=== PATIENT | male | born 1980 | race Caucasian/White ===

== ENCOUNTER 2018-02-19 20:31 | Emergency (ER) | payer OTHER ==
[2018-02-19] MEDS ORDERED: MORPHINE SULFATE 4 MG INJ IV ONE (21:08)
[2018-02-19] MEDS ORDERED: Pepcid 20 MG VIAL IV ONE ×2 (21:08→21:18)
[2018-02-19] MEDS ORDERED: Zofran 4 MG/2 ML VIAL IV ONE (21:08)
[2018-02-19] MEDS ORDERED: BENADRYL 50 MG/ML IV ONE (21:08)
[2018-02-19] MEDS ORDERED: Sodium Chloride 0.9% 1000 ML 1,000 ML IV STA ×2 (21:08→21:41)
[2018-02-19] MEDS ORDERED: Reglan 10 MG/2 ML IV ONE (21:08)
[2018-02-19] MEDS ORDERED: MORPHINE SULFATE 4 MG INJ ONE (21:18)
[2018-02-19] MEDS ORDERED: Reglan 10 MG/2 ML ONE (21:18)
[2018-02-19] MEDS ORDERED: BENADRYL 50 MG/ML ONE (21:18)
[2018-02-19] MEDS ORDERED: Sodium Chloride 0.9% 1000 ML 1,000 ML ONE ×2 (21:18→22:37)
[2018-02-19] MEDS ORDERED: Zofran 4 MG/2 ML VIAL ONE (21:18)
[2018-02-19 21:19] VITALS: BP 177/108; PULSE 78; O2SAT 100
[2018-02-19 21:30] LABS: Lactic Acid 2.9 (0.4-2.0)
--- NOTE | 2018-02-19 21:32 | ERPHSYRPT ---
- History of Present Illness Time Seen by Provider: 02/19/18 21:28 Historian: patient, family Exam Limitations: no limitations Patient Subjective Stated Complaint: Patient woke up in the middle of the night throwing up and has continued to do so since approximately every 1/2 hour Triage Nursing Assessment: Pt A&O x3, vomiting, hypoactive bowel sounds heard in all 4 quadrants, last intake pm 02/18/2018, skin cool and clammy, pulses normal, bp 177/108, abdomen tender with palpation, rates pain 8/10 in abdomen, Temp 99.4 axillary Physician History: 37-year-old male came to the emergency room with complaining of severe epigastric abdominal pain, burning in nature, associated with nausea and vomiting. Patient pain started around 1:00 in the morning today and got worse in last 2 hours. Patient took some Zantac but without any help. Patient had same type of symptoms approximately 6 months ago and at that time he was diagnosed with viral gastroenteritis. Patient does say that he had a bowel movement today which was regular. Patient denies any fever, chills. Timing/Duration: today Activities at Onset: none Quality: burning Abdominal Pain Onset Location: epigastric Pain Radiation: no radiation Severity of Pain-Max: moderate Severity of Pain-Current: moderate Modifying Factors: Improves With: nothing Associated Symptoms: nausea, vomiting Previous symptoms: same symptoms as today Allergies/Adverse Reactions: No Known Drug Allergies Allergy (Verified 02/19/18 21:26) - Review of Systems Constitutional: No Fever, No Chills Eyes: No Symptoms Ears, Nose, & Throat: No Symptoms Respiratory: No Cough, No Dyspnea Cardiac: No Chest Pain, No Edema, No Syncope Abdominal/Gastrointestinal: Abdominal Pain, Nausea, Vomiting, No Diarrhea Genitourinary Symptoms: No Dysuria Musculoskeletal: No Back Pain, No Neck Pain Skin: No Rash Neurological: No Dizziness, No Focal Weakness, No Sensory Changes Psychological: No Symptoms Endocrine: No Symptoms All Other Systems: Reviewed and Negative - Past Medical History Pertinent Past Medical History: No - Past Surgical History Past Surgical History: Yes Gastrointestinal: Appendectomy - Social History Smoking Status: Former smoker Exposure to second hand smoke: No Drug Use: none Patient Lives Alone: No - Nursing Vital Signs Nursing Vital Signs: Initial Vital Signs Temperature 99.4 F 02/19/18 21:05 Pulse Rate 78 02/19/18 21:05 Blood Pressure 177/108 02/19/18 21:05 O2 Sat by Pulse Oximetry 100 02/19/18 21:05 Pain Scale Pain Intensity 8 - Physical Exam General Appearance: no apparent distress, alert Eye Exam: PERRL/EOMI, eyes nml inspection Ears, Nose, Throat Exam: normal ENT inspection, pharynx normal, moist mucous membranes Neck Exam: normal inspection, non-tender, supple, full range of motion Respiratory Exam: normal breath sounds, lungs clear, No respiratory distress Cardiovascular Exam: regular rate/rhythm, normal heart sounds Gastrointestinal/Abdomen Exam: soft, tenderness (epigastric area), No mass Back Exam: normal inspection, normal range of motion, No CVA tenderness, No vertebral tenderness Extremity Exam: normal inspection, normal range of motion, pelvis stable Neurologic Exam: alert, oriented x 3, cooperative, normal mood/affect, nml cerebellar function, sensation nml, No motor deficits Skin Exam: normal color, warm, dry SpO2: 100 Oxygen Delivery: Room Air - Course Nursing assessment & vital signs reviewed: Yes Ordered Tests: Active Orders 24 hr Category Date Time Status AMYLASE Stat Lab 02/19/18 21:08 Completed CBC W DIFF Stat Lab 02/19/18 21:08 Completed CMP Stat Lab 02/19/18 21:08 Completed LIPASE Stat Lab 02/19/18 21:08 Completed Lactic Acid Stat Lab 02/19/18 21:25 Results UA W/RFX UR CULTURE Stat Lab 02/19/18 21:08 Ordered Urine Triage Profile Stat Lab 02/19/18 21:08 Completed Medication Summary Generic Name Dose Route Start Last Admin Trade Name Freq PRN Reason Stop Dose Admin Sodium Chloride 1,000 mls @ 999 mls/hr 02/19/18 21:41 Sodium Chloride 0.9% 1000 Ml IV 02/19/18 22:41 .Q1H1M STA Ceftriaxone Sodium/Dextrose 1 g in 50 mls @ 100 mls/hr 02/19/18 22:27 Rocephin 1 Gm-D5w 50 Ml Bag IV 02/19/18 22:56 STAT STA Discontinued Medications Generic Name Dose Route Start Last Admin Trade Name Freq PRN Reason Stop Dose Admin Diphenhydramine HCl 25 mg 02/19/18 21:08 02/19/18 21:22 Benadryl 50 Mg/Ml IV 02/19/18 21:09 25 mg STAT ONE Administration Diphenhydramine HCl Confirm 02/19/18 21:18 Benadryl 50 Mg/Ml Administered 02/19/18 21:19 Dose 50 mg .ROUTE .STK-MED ONE Famotidine 20 mg 02/19/18 21:08 02/19/18 21:21 Pepcid 20 Mg Vial IV 02/19/18 21:09 20 mg STAT ONE Administration Famotidine Confirm 02/19/18 21:18 Pepcid 20 Mg Vial Administered 02/19/18 21:19 Dose 20 mg IV .STK-MED ONE Sodium Chloride 1,000 mls @ 999 mls/hr 02/19/18 21:08 02/19/18 21:20 Sodium Chloride 0.9% 1000 Ml IV 02/19/18 22:08 999 mls/hr .Q1H1M STA Administration Sodium Chloride Confirm 02/19/18 21:18 Sodium Chloride 0.9% 1000 Ml Administered 02/19/18 21:19 Dose 1,000 mls @ ud .ROUTE .STK-MED ONE Metoclopramide HCl 10 mg 02/19/18 21:08 02/19/18 21:22 Reglan 10 Mg/2 Ml IV 02/19/18 21:09 10 mg STAT ONE Administration Metoclopramide HCl Confirm 02/19/18 21:18 Reglan 10 Mg/2 Ml Administered 02/19/18 21:19 Dose 10 mg .ROUTE .STK-MED ONE Morphine Sulfate 4 mg 02/19/18 21:08 02/19/18 21:22 Morphine Sulfate 4 Mg Inj IV 02/19/18 21:09 4 mg STAT ONE Administration Morphine Sulfate Confirm 02/19/18 21:18 Morphine Sulfate 4 Mg Inj Administered 02/19/18 21:19 Dose 4 mg .ROUTE .STK-MED ONE Ondansetron HCl 4 mg 02/19/18 21:08 02/19/18 21:21 Zofran 4 Mg/2 Ml Vial IV 02/19/18 21:09 4 mg STAT ONE Administration Ondansetron HCl Confirm 02/19/18 21:18 Zofran 4 Mg/2 Ml Vial Administered 02/19/18 21:19 Dose 4 mg .ROUTE .STK-MED ONE Lab/Rad Data: Laboratory Result Diagrams 02/19/18 21:08 02/19/18 21:08 Laboratory Results 02/19/18 02/19/18 02/19/18 Range/Units 21:25 21:08 21:08 WBC (4.0-10.5) K/mm3 RBC (4.1-5.6) M/mm3 Hgb (12.5-18.0) gm/dl Hct (42-50) % MCV (78-100) fl MCH (26-32) pg MCHC (32-36) g/dl RDW (11.5-14.0) % Plt Count (150-450) K/mm3 MPV (6-9.5) fl Gran % (36.0-66.0) % Eos # (Auto) (0-0.5) Absolute Lymphs (auto) (1.0-4.6) Absolute Monos (auto) (0.0-1.3) Lymphocytes % (24.0-44.0) % Monocytes % (0.0-12.0) % Eosinophils % (0.00-5.0) % Basophils % (0.0-0.4) % Absolute Granulocytes (1.4-6.9) Basophils # (0-0.4) Sodium 142 (137-145) mmol/L Potassium 4.0 (3.5-5.1) mmol/L Chloride 103 (98-107) mmol/L Carbon Dioxide 20 L (22-30) mmol/L Anion Gap 23.3 H (5-15) MEQ/L BUN 16 (9-20) mg/dL Creatinine 0.62 L (0.66-1.25) mg/dL Estimated GFR > 60.0 ML/MIN Glucose 126 H (74-106) mg/dL Lactic Acid 2.9 H (0.4-2.0) Calcium 10.7 H (8.4-10.2) mg/dL Total Bilirubin 0.90 (0.2-1.3) mg/dL AST 43 (17-59) U/L ALT 52 H (0-50) U/L Alkaline Phosphatase 115 (38-126) U/L Serum Total Protein 10.3 H (6.3-8.2) g/dL Albumin 5.3 H (3.5-5.0) g/dL Amylase 71 (30-110) U/L Lipase 69 (23-300) U/L Urine Opiates Level POSITIVE (NEGATIVE) Ur Methadone NEGATIVE (NEGATIVE) Urine Barbiturates NEGATIVE (NEGATIVE) Ur Phencyclidine (PCP) NEGATIVE (NEGATIVE) Urine Amphetamine NEGATIVE (NEGATIVE) U Benzodiazepine Level NEGATIVE (NEGATIVE) Urine Cocaine NEGATIVE (NEGATIVE) Urine Marijuana (THC) POSITIVE (NEGATIVE) 02/19/18 Range/Units 21:08 WBC 17.6 H (4.0-10.5) K/mm3 RBC 5.82 H (4.1-5.6) M/mm3 Hgb 17.2 (12.5-18.0) gm/dl Hct 49.0 (42-50) % MCV 84.2 (78-100) fl MCH 29.5 (26-32) pg MCHC 35.1 (32-36) g/dl RDW 12.7 (11.5-14.0) % Plt Count 367 (150-450) K/mm3 MPV 11.8 H (6-9.5) fl Gran % 87.1 H (36.0-66.0) % Eos # (Auto) 0.01 (0-0.5) Absolute Lymphs (auto) 1.77 (1.0-4.6) Absolute Monos (auto) 0.46 (0.0-1.3) Lymphocytes % 10.1 L (24.0-44.0) % Monocytes % 2.6 (0.0-12.0) % Eosinophils % 0.1 (0.00-5.0) % Basophils % 0.1 (0.0-0.4) % Absolute Granulocytes 15.33 H (1.4-6.9) Basophils # 0.02 (0-0.4) Sodium (137-145) mmol/L Potassium (3.5-5.1) mmol/L Chloride (98-107) mmol/L Carbon Dioxide (22-30) mmol/L Anion Gap (5-15) MEQ/L BUN (9-20) mg/dL Creatinine (0.66-1.25) mg/dL Estimated GFR ML/MIN Glucose (74-106) mg/dL Lactic Acid (0.4-2.0) Calcium (8.4-10.2) mg/dL Total Bilirubin (0.2-1.3) mg/dL AST (17-59) U/L ALT (0-50) U/L Alkaline Phosphatase (38-126) U/L Serum Total Protein (6.3-8.2) g/dL Albumin (3.5-5.0) g/dL Amylase (30-110) U/L Lipase (23-300) U/L Urine Opiates Level (NEGATIVE) Ur Methadone (NEGATIVE) Urine Barbiturates (NEGATIVE) Ur Phencyclidine (PCP) (NEGATIVE) Urine Amphetamine (NEGATIVE) U Benzodiazepine Level (NEGATIVE) Urine Cocaine (NEGATIVE) Urine Marijuana (THC) (NEGATIVE) - Progress Progress: improved, re-examined Progress Note: 02/19/18 22:28 Patient is feeling much better. Abdominal pain is almost resolved. No nausea or vomiting or no burning sensation in epigastric area able to tolerate fluid. Counseled pt/family regarding: lab results, diagnosis, need for follow-up - Departure Time of Disposition: 22:29 Departure Disposition: Home Clinical Impression: Gastritis and duodenitis Condition: Stable Critical Care Time: Yes Critical Care Time(excluding separately billable procedures): 30-74 minutes Referrals: DOMINIQUE VANCE [ACTIVE STAFF] - Instructions: Acute Abdomen (Belly Pain), Adult (DC) Additional Instructions: ABDOMINAL PAIN 1. There are several different causes for abdominal pain, some of which may not be able to be identified on initial examination. 2. The important thing to remember is that bodily functions can change in a short period of time. If you notice any of the following symptoms, return to the emergency department or consult your doctor immediately: A. Worsening pain or no improvement in the next 12 hours. B. Increasing, severe abdominal pain C. Blood in stool D. Black stools E. Persistent vomiting F. Fever or chills or other symptoms ABBIEYOMICORIN CHRISTIANSON was seen on 02/19/18 n the Emergency Room. At that time you were treated for an emergent condition, during your visit Laboratory, Radiology and/or other procedures may have been ordered. It is very important that you follow-up with your Primary Care Physician within the next 24-48 hours to review your Emergency Room visit and the final results of testing that was ordered. Some test results such as Urine Cultures, Blood Cultures, and other cultures if ordered will not be finalized for 24-48 hours. If you do not have a Primary Care Provider please call the medical records department at [phone] to obtain a copy of your results or you may sign into our patient portal to obtain these results by visiting us @ [email or web address] and completing the following steps: 1. Click on the Patient Portal link 2. Click the Patient Self Enrollment Link to complete the enrollment form and entering your 3. Once the enrollment form is completed you will receive an email with a temporary ID and password at the email address you provided. 4. Next choose a user name and password. Your user name must be at least 4 characters long and your password must be at least 4 characters long. 5. Choose a security question from the list and provide your answer to the question. If you already have signed into the Health Portal you may access your Health Care Information 04/05 by the following steps: 1. Login to our website @ [email or web address] 2. Enter your original user name and password. FAQS The [facility] Health Portal is an online tool that contains your Lab Results, Radiology Reports, Visit History, Discharge Instructions and Health Summary Lab and Radiology Results will not be available for 72 hours on the portal. The Portal is a secure site, passwords are encryted and URLs are re-written so they cannot be copied and pasted. You and authorized family members are the only ones who can access your Portal. Also there is a timeout feature that protects your information if you leave the Portal page open. If you have technical difficulty please use the Contact Us link on the page this will allow you to submit any questions you have regarding the Portal or you may contact the Medical Record Department at [phone]. Prescriptions: Cephalexin Mh 500 mg [Keflex 500 mg] 500 mg PO Q6H #40 capsule PANTOPRAZOLE 40 mg Tablet [Protonix 40MG Tablet] 40 mg PO DAILY #30 tab
[2018-02-19 21:48] LABS: ALBUMIN 5.3 g/dL (3.5-5.0); ALKALINE PHOSPHATASE 115 U/L (38-126); AMYLASE 71 U/L (30-110); ANION GAP 23.3 MEQ/L (5-15); BLOOD UREA NITROGEN 16 mg/dL (9-20); CHLORIDE 103 mmol/L (98-107); Calcium 10.7 mg/dL (8.4-10.2); Carbon Dioxide 20 mmol/L (22-30); Creatinine 1 0.62 mg/dL (0.66-1.25); Glucose 126 mg/dL (74-106); LIPASE 69 U/L (23-300); SGOT/AST 43 U/L (17-59); SODIUM 142 mmol/L (137-145); Total Protein 10.3 g/dL (6.3-8.2)
[2018-02-19 21:53] LABS: BASOPHIL % 0.1 % (0.0-0.4); Basophil (Absolute #) 0.02 (0-0.4); Eosinophil % 0.1 % (0.00-5.0); Eosinophil (Absolute #) 0.01 (0-0.5); Granulocyte Absolute (ANC) 15.33 (1.4-6.9); Granulocytes % 87.1 % (36.0-66.0); Hemoglobin 17.2 gm/dl (12.5-18.0); Lymphocyte (Absolute #) 1.77 (1.0-4.6); Lymphocytes % 10.1 % (24.0-44.0); Mean Cell Volume 84.2 fl (78-100); Mean Corpuscular Hgb Concent. 35.1 g/dl (32-36); Mean Platelet Volume 11.8 fl (6-9.5); Monocyte (Absolute #) 0.46 (0.0-1.3); Monocytes % 2.6 % (0.0-12.0); Platelet Count 367 K/mm3 (150-450); Red Blood Count 5.82 M/mm3 (4.1-5.6); Red Cell Distribution Width 12.7 % (11.5-14.0)
[2018-02-19 21:56] LABS: SGPT/ALT 52 U/L (0-50)
[2018-02-19 22:07] LABS: Mean Corpuscular Hemoglobin 29.5 pg (26-32)
[2018-02-19 22:10] LABS: Amphetamine,Urine NEGATIVE (NEGATIVE); Barbiturate,Urine NEGATIVE (NEGATIVE); Benzodiazepine,Urine NEGATIVE (NEGATIVE); Cocaine,Urine NEGATIVE (NEGATIVE); Methadone,Urine NEGATIVE (NEGATIVE); Opiate,Urine POSITIVE (NEGATIVE); PCP,Urine NEGATIVE (NEGATIVE)
[2018-02-19 22:16] LABS: THC,Urine POSITIVE (NEGATIVE)
[2018-02-19 22:17] LABS: White Blood Count 17.6 K/mm3 (4.0-10.5)
[2018-02-19] MEDS ORDERED: ROCEPHIN 1 Gm-D5w 50 ml Bag** 1 G/50 ML IVPB IV STA (22:27)
[2018-02-19] MEDS ORDERED: ROCEPHIN 1 Gm-D5w 50 ml Bag** 1 G/50 ML IVPB IV ONE (22:37)
[2018-02-19 22:44] LABS: Appearance CLEAR (CLEAR); Leukocyte Esterase NEGATIVE (NEGATIVE); Nitrite NEGATIVE (NEGATIVE)
[2018-02-19 22:45] LABS: Bilirubin NEGATIVE (NEGATIVE); Blood TRACE NON-HEM Ery/ul (0-5); Glucose NEGATIVE (NEGATIVE); Ketones MODERATE (NEGATIVE); Urobilinogen NORMAL mg/dL (0-1)
[2018-02-19 22:46] LABS: Protein,Urine Dip TRACE (Negative)
[2018-02-19 23:27] LABS: Slide Review 1 YES
== END 2018-02-19 23:25 | disposition home or self-care (01) ==
LOC: ED 20:31
DX: K29.80 Duodenitis without bleeding (principal); K29.70 Gastritis, unspecified, without bleeding; R11.2 Nausea with vomiting, unspecified
CPT/HCPCS: 36000; 36415; 80053; 80307; 81000; 82150; 83605; 83690; 85025; 96360; 96361; 96365; 96374; 96375; 99284; J0696; J1200; J2270; J2405

== ENCOUNTER 2018-02-22 19:25 | Emergency (ER) | payer OTHER ==
[2018-02-22] MEDS ORDERED: Zofran 4 MG/2 ML VIAL IV ONE (20:13)
[2018-02-22] MEDS ORDERED: MORPHINE SULFATE 4 MG INJ IV ONE (20:13)
[2018-02-22] MEDS ORDERED: Sodium Chloride 0.9% 1000 ML 1,000 ML IV STA ×2 (20:13→22:03)
[2018-02-22] MEDS ORDERED: MORPHINE SULFATE 4 MG INJ ONE (20:16)
[2018-02-22] MEDS ORDERED: Sodium Chloride 0.9% 1000 ML 1,000 ML ONE ×2 (20:16→22:14)
[2018-02-22] MEDS ORDERED: Zofran 4 MG/2 ML VIAL ONE (20:16)
--- NOTE | 2018-02-22 20:17 | ERPHSYRPT ---
- History of Present Illness Time Seen by Provider: 02/22/18 20:10 Historian: patient Exam Limitations: no limitations Patient Subjective Stated Complaint: vomiting, chills, pain in medial area between right and left upper quadrants of abdomen Triage Nursing Assessment: Pt A&O x3, vomiting, chills, pain in medial area between right and left upper quadrants of abdomen and with palpation, clammy, presented to ER on 02/19/2018 with same symptoms, bowel sounds heard in all 4 quadrants, Physician History: Was him this is a 37-year-old white male who was seen here 2 days ago secondary to abdominal pain . He arrives with complaints of pain in the epigastric region since 11:00 today with nausea and vomiting. Past medical history patient denies past surgical history includes appendectomy Social history includes marijuana use Quality: aching, burning Abdominal Pain Onset Location: epigastric Severity of Pain-Max: moderate Severity of Pain-Current: moderate Modifying Factors: Improves With: nothing Associated Symptoms: diaphoresis, nausea, vomiting, No back, No chest pain, No diarrhea, No fever/chills, No fatigue, No headache, No heartburn, No loss of appetite, No neck pain, No rash, No shortness of breath, No syncope, No weakness Previous symptoms: same symptoms as today (seen here 2 days ago for the same) Allergies/Adverse Reactions: No Known Drug Allergies Allergy (Verified 02/22/18 19:45) Home Medications: Omeprazole 20 MG [Prilosec 20 mg] 20 mg PO BID 02/22/18 [History] - Review of Systems Constitutional: No Fever, No Chills Eyes: No Symptoms Ears, Nose, & Throat: No Symptoms Respiratory: No Cough, No Dyspnea Cardiac: No Chest Pain, No Edema, No Syncope Abdominal/Gastrointestinal: Abdominal Pain, Vomiting, No Diarrhea, No Constipation, No Hematemesis, No Hematochezia, No Melena, No Dysphagia, No Appetite Changes Genitourinary Symptoms: No Dysuria Musculoskeletal: No Back Pain, No Neck Pain Skin: No Rash Neurological: No Dizziness, No Focal Weakness, No Sensory Changes Psychological: No Symptoms Endocrine: No Symptoms All Other Systems: Reviewed and Negative - Past Medical History Pertinent Past Medical History: No - Past Surgical History Past Surgical History: Yes Gastrointestinal: Appendectomy - Social History Smoking Status: Former smoker Exposure to second hand smoke: No Drug Use: marijuana Patient Lives Alone: No - Nursing Vital Signs Nursing Vital Signs: Initial Vital Signs Temperature 98.0 F 02/22/18 19:30 Pulse Rate 65 02/22/18 19:30 Blood Pressure 163/109 02/22/18 19:30 O2 Sat by Pulse Oximetry 100 02/22/18 19:30 Pain Scale Pain Intensity 6 - Physical Exam General Appearance: moderate distress Eye Exam: PERRL/EOMI, eyes nml inspection Ears, Nose, Throat Exam: normal ENT inspection, pharynx normal, moist mucous membranes Neck Exam: normal inspection, non-tender, supple, full range of motion Respiratory Exam: normal breath sounds, lungs clear, No respiratory distress Cardiovascular Exam: regular rate/rhythm, normal heart sounds Gastrointestinal/Abdomen Exam: soft, normal bowel sounds, tenderness ( epigastric tenderness), No distention, No mass, No guarding, No ecchymosis, No pulsatile mass, No rebound, No hernia, No hepatomegaly, No organomegaly, No splenomegaly, No bruit Back Exam: normal inspection, normal range of motion, No CVA tenderness, No vertebral tenderness Extremity Exam: normal inspection, normal range of motion, pelvis stable Neurologic Exam: alert, oriented x 3, cooperative, normal mood/affect, nml cerebellar function, sensation nml, No motor deficits Skin Exam: normal color, warm, dry SpO2 Interpretation: normal SpO2: 100 Oxygen Delivery: Room Air - Course Nursing assessment & vital signs reviewed: Yes - CT Exams Abdomen/Pelvis CT Interpretation: Tele-radiologist Report (CT of abdomen and pelvis: No acute findings) Ordered Tests: Active Orders 24 hr Category Date Time Status IV Insertion STAT Care 02/22/18 20:13 Active ABDOMEN AND PELVIS W CONTRAST [CT] Stat Exams 02/22/18 20:32 Taken AMYLASE Stat Lab 02/22/18 20:16 Completed CBC W DIFF Stat Lab 02/22/18 20:16 Completed CMP Stat Lab 02/22/18 20:16 Completed LIPASE Stat Lab 02/22/18 20:16 Completed UA W/RFX UR CULTURE Stat Lab 02/22/18 21:45 Completed Medication Summary Discontinued Medications Generic Name Dose Route Start Last Admin Trade Name Freq PRN Reason Stop Dose Admin Hydrocodone Bitart/Acetaminophen 2 tab 02/22/18 23:12 Warrior 5/325 Mg PO 02/22/18 23:13 SENT HOME W/ PATIENT ONE Sodium Chloride 1,000 mls @ 999 mls/hr 02/22/18 20:13 02/22/18 21:56 Sodium Chloride 0.9% 1000 Ml IV 02/22/18 21:13 Infused .Q1H1M STA Infusion Sodium Chloride Confirm 02/22/18 20:16 Sodium Chloride 0.9% 1000 Ml Administered 02/22/18 20:17 Dose 1,000 mls @ ud .ROUTE .STK-MED ONE Sodium Chloride 1,000 mls @ 999 mls/hr 02/22/18 22:03 02/22/18 23:15 Sodium Chloride 0.9% 1000 Ml IV 02/22/18 23:03 Infused .Q1H1M STA Infusion Sodium Chloride Confirm 02/22/18 22:14 Sodium Chloride 0.9% 1000 Ml Administered 02/22/18 22:15 Dose 1,000 mls @ ud .ROUTE .STK-MED ONE Morphine Sulfate 4 mg 02/22/18 20:13 02/22/18 20:18 Morphine Sulfate 4 Mg Inj IV 02/22/18 20:14 4 mg STAT ONE Administration Morphine Sulfate Confirm 02/22/18 20:16 Morphine Sulfate 4 Mg Inj Administered 02/22/18 20:17 Dose 4 mg .ROUTE .STK-MED ONE Ondansetron HCl 4 mg 02/22/18 20:13 02/22/18 20:18 Zofran 4 Mg/2 Ml Vial IV 02/22/18 20:14 4 mg STAT ONE Administration Ondansetron HCl Confirm 02/22/18 20:16 Zofran 4 Mg/2 Ml Vial Administered 02/22/18 20:17 Dose 4 mg .ROUTE .STK-MED ONE Promethazine HCl 25 mg 02/22/18 23:15 Phenergan 25 Mg PO 02/22/18 23:16 STAT ONE Lab/Rad Data: Laboratory Result Diagrams 02/22/18 20:16 02/22/18 20:16 Laboratory Results 02/22/18 02/22/18 02/22/18 Range/Units 21:45 20:16 20:16 WBC 14.2 H (4.0-10.5) K/mm3 RBC 5.32 (4.1-5.6) M/mm3 Hgb 15.9 (12.5-18.0) gm/dl Hct 45.2 (42-50) % MCV 85.0 (78-100) fl MCH 29.9 (26-32) pg MCHC 35.2 (32-36) g/dl RDW 13.0 (11.5-14.0) % Plt Count 312 (150-450) K/mm3 MPV 11.5 H (6-9.5) fl Gran % 76.0 H (36.0-66.0) % Eos # (Auto) 0.09 (0-0.5) Absolute Lymphs (auto) 2.59 (1.0-4.6) Absolute Monos (auto) 0.71 (0.0-1.3) Lymphocytes % 18.3 L (24.0-44.0) % Monocytes % 5.0 (0.0-12.0) % Eosinophils % 0.6 (0.00-5.0) % Basophils % 0.1 (0.0-0.4) % Absolute Granulocytes 10.78 H (1.4-6.9) Basophils # 0.02 (0-0.4) Sodium 144 (137-145) mmol/L Potassium 3.8 (3.5-5.1) mmol/L Chloride 106 (98-107) mmol/L Carbon Dioxide 24 (22-30) mmol/L Anion Gap 18.1 H (5-15) MEQ/L BUN 15 (9-20) mg/dL Creatinine 0.65 L (0.66-1.25) mg/dL Estimated GFR > 60.0 ML/MIN Glucose 99 (74-106) mg/dL Calcium 10.3 H (8.4-10.2) mg/dL Total Bilirubin 0.70 (0.2-1.3) mg/dL AST 30 (17-59) U/L ALT 33 (0-50) U/L Alkaline Phosphatase 97 (38-126) U/L Serum Total Protein 8.9 H (6.3-8.2) g/dL Albumin 4.8 (3.5-5.0) g/dL Amylase 77 (30-110) U/L Lipase 99 (23-300) U/L Ur Collection Type VOID Urine Color YELLOW (YELLOW) Urine Appearance CLEAR (CLEAR) Urine pH 8.0 (5-6) Ur Specific Melber 1.015 (1.005-1.025) Urine Protein NEGATIVE (Negative) Urine Ketones SMALL (NEGATIVE) Urine Blood NEGATIVE (0-5) Leandro/ul Urine Nitrite NEGATIVE (NEGATIVE) Urine Bilirubin NEGATIVE (NEGATIVE) Urine Urobilinogen NORMAL (0-1) mg/dL Ur Leukocyte Esterase NEGATIVE (NEGATIVE) Urine Culture Reflexed NO (NO) Urine Glucose NEGATIVE (NEGATIVE) mg/dL Specimen Received 02/22/18 2745 - Progress Progress: improved Progress Note: 02/22/18 23:06 Patient is feeling better after 2 L of normal saline Zofran and morphine [address] of the abdomen no acute findings patient's labs show a white count of 14.2 hemoglobin 15.4 hematocrit 45.2 amylase and lipase within normal limits urinalysis unremarkable. Will plan to discharge patient with a prescription for Phenergan 25 mg orally every 4-6 hours as needed for nausea and vomiting Warrior No. 6 tablets one orally every 4-6 hours as needed for pain. Patient has already been given a prescription by Dr. Ferro for Keflex for duodenitis. I've offered patient a work slip for tomorrow he states he really doesn't need one. Will discharge patient. - Departure Time of Disposition: 23:08 Departure Disposition: Home Clinical Impression: Epigastric abdominal pain Nausea & vomiting Qualifiers: Vomiting type: unspecified Vomiting Intractability: non-intractable Qualified Code(s): R11.2 - Nausea with vomiting, unspecified Condition: Fair Critical Care Time: No Referrals: DOCTOR,NO FAMILY [Primary Care Provider] - Additional Instructions: Return home. Plenty of fluids, clear fluids only 24-48 hours if nausea vomiting. Phenergan and Warrior as prescribed. Follow-up with your family doctor. Return for acute distress or for severe symptoms. Prescriptions: Hydrocodone Bit/Acetaminophen [Warrior 5-325 Tablet] 1 tab PO Q4-6HPRN PRN #6 tablet MDD 6 tablets PRN Reason: nausea and vomiting Promethazine HCl 25 mg [Phenergan 25 mg] 25 mg PO Q4-6HPRN PRN #12 tablet PRN Reason: nausea and vomiting
[2018-02-22 20:20] LABS: BASOPHIL % 0.1 % (0.0-0.4); Basophil (Absolute #) 0.02 (0-0.4); Eosinophil % 0.6 % (0.00-5.0); Eosinophil (Absolute #) 0.09 (0-0.5); Granulocyte Absolute (ANC) 10.78 (1.4-6.9); Hematocrit 45.2 % (42-50); Hemoglobin 15.9 gm/dl (12.5-18.0); Lymphocyte (Absolute #) 2.59 (1.0-4.6); Lymphocytes % 18.3 % (24.0-44.0); Mean Corpuscular Hemoglobin 29.9 pg (26-32); Mean Corpuscular Hgb Concent. 35.2 g/dl (32-36); Mean Platelet Volume 11.5 fl (6-9.5); Monocyte (Absolute #) 0.71 (0.0-1.3); Platelet Count 312 K/mm3 (150-450); Red Blood Count 5.32 M/mm3 (4.1-5.6); White Blood Count 14.2 K/mm3 (4.0-10.5)
[2018-02-22 20:27] LABS: ALBUMIN 4.8 g/dL (3.5-5.0); ALKALINE PHOSPHATASE 97 U/L (38-126); AMYLASE 77 U/L (30-110); ANION GAP 18.1 MEQ/L (5-15); BLOOD UREA NITROGEN 15 mg/dL (9-20); CHLORIDE 106 mmol/L (98-107); Calcium 10.3 mg/dL (8.4-10.2); Carbon Dioxide 24 mmol/L (22-30); Creatinine 1 0.65 mg/dL (0.66-1.25); Glucose 99 mg/dL (74-106); LIPASE 99 U/L (23-300); Potassium 3.8 mmol/L (3.5-5.1); SGOT/AST 30 U/L (17-59); SGPT/ALT 33 U/L (0-50); SODIUM 144 mmol/L (137-145); Total Protein 8.9 g/dL (6.3-8.2)
[2018-02-22 21:51] LABS: Appearance CLEAR (CLEAR); Bilirubin NEGATIVE (NEGATIVE); Blood NEGATIVE Ery/ul (0-5); Glucose NEGATIVE (NEGATIVE); Ketones SMALL (NEGATIVE); Leukocyte Esterase NEGATIVE (NEGATIVE); Nitrite NEGATIVE (NEGATIVE); Protein,Urine Dip NEGATIVE (Negative); Specific Gravity 1.015 (1.005-1.025); Urobilinogen NORMAL mg/dL (0-1)
[2018-02-22] MEDS ORDERED: NORCO 5/325 MG PO ONE (23:12)
[2018-02-22 23:15] VITALS: BP 135/75; PULSE 83
[2018-02-22] MEDS ORDERED: PHENERGAN 25 MG PO ONE (23:15)
[2018-02-22 23:17] VITALS: O2SAT 100
[2018-02-22] MEDS ORDERED: PHENERGAN 25 MG ONE (23:18)
[2018-02-22] MEDS ORDERED: NORCO 5/325 MG ONE (23:18)
--- NOTE | 2018-02-23 08:54 | XRAY ---
Indication: Abdominal pain. Nausea and vomiting. Multiple contiguous axial images obtained through the abdomen and pelvis using 80 cc Isovue 370 contrast only. Comparison: None. Lung bases are clear. Heart is not enlarged. Noncontrasted stomach and bowel loops appear nonobstructed. Previous appendectomy. No free fluid/air. Remaining liver, gallbladder, pancreas, spleen, adrenal glands, kidneys, ureters, bladder, and aorta appear unremarkable. No pathologic retroperitoneal lymphadenopathy. Osseous structures intact with remote appearing L3 anterior wedging deformity and mild dextroscoliosis centered at L1-L2. No ventral or inguinal hernias. Impression: 1. Chronic incidental bony findings. 2. Remaining CT abdomen/pelvis with contrast exam is negative. Comment: Preliminary interpretation was made by [facility]. No critical discrepancy. CT DI 18.31
== END 2018-02-22 23:33 | disposition home or self-care (01) ==
LOC: ED 19:25
DX: R10.13 Epigastric pain (principal); R11.2 Nausea with vomiting, unspecified; R61 Generalized hyperhidrosis
CPT/HCPCS: 36000; 36415; 74177; 80053; 81002; 82150; 83690; 85025; 96360; 96361; 96374; 96375; 99284; J2270; J2405; A9270-GY

== ENCOUNTER 2018-04-20 17:10 | Emergency (ER) | payer OTHER ==
[2018-04-20] MEDS ORDERED: Sodium Chloride 0.9% 1000 ML 1,000 ML IV STA ×2 (17:52→17:54)
[2018-04-20] MEDS ORDERED: Phenergan 25 MG INJ IV ONE (17:52)
--- NOTE | 2018-04-20 17:57 | ERPHSYRPT ---
- History of Present Illness Time Seen by Provider: 04/20/18 17:53 Historian: patient Exam Limitations: no limitations Patient Subjective Stated Complaint: pt here for nausea and vomiting since last night with heartburn today. pt took omeperzole. no fever Triage Nursing Assessment: pt alert, resp easy, skin w/d/p, abd soft, no edema. moves all ext well Physician History: 37-year-old white male arrives with complaints of epigastric pain symptoms since last night nausea and vomiting. Patient has been seen recently for similar symptoms approximately 2 months ago had a normal CT of the abdomen at that time. Past medical history includes appendectomy, orthopedic surgery, ankle surgery, Social history includes marijuana use Timing/Duration: yesterday Activities at Onset: none Quality: cramping Abdominal Pain Onset Location: epigastric Pain Radiation: no radiation Associated Symptoms: heartburn, nausea, vomiting, No back, No chest pain, No diaphoresis, No diarrhea, No fever/chills, No fatigue, No headache, No loss of appetite, No neck pain, No rash, No shortness of breath, No syncope, No weakness Previous symptoms: same symptoms as today Allergies/Adverse Reactions: No Known Drug Allergies Allergy (Verified 04/20/18 17:28) Home Medications: Omeprazole Magnesium [Prilosec Otc] 20 mg DAILY 04/20/18 [History] Ranitidine HCl [Zantac] 150 mg DAILY 04/20/18 [History] Hx Influenza Vaccination/Date Given: No Hx Pneumococcal Vaccination/Date Given: No Immunizations Up to Date: Yes - Review of Systems Constitutional: No Fever, No Chills Eyes: No Symptoms Ears, Nose, & Throat: No Symptoms Respiratory: No Cough, No Dyspnea Cardiac: No Chest Pain, No Edema, No Syncope Abdominal/Gastrointestinal: Abdominal Pain (epigastric abdominal pain), Nausea, Vomiting, No Diarrhea, No Constipation, No Hematemesis, No Hematochezia, No Melena, No Dysphagia Genitourinary Symptoms: No Dysuria Musculoskeletal: No Back Pain, No Neck Pain Skin: No Rash Neurological: No Dizziness, No Focal Weakness, No Sensory Changes Psychological: No Symptoms Endocrine: No Symptoms All Other Systems: Reviewed and Negative - Past Medical History Pertinent Past Medical History: No - Past Surgical History Past Surgical History: Yes Gastrointestinal: Appendectomy Musculoskeletal: Orthopedic Surgery Other Surgical History: ankle surgery - Social History Smoking Status: Never smoker Exposure to second hand smoke: Yes Drug Use: marijuana Patient Lives Alone: No - Nursing Vital Signs Nursing Vital Signs: Initial Vital Signs Temperature 97.8 F 04/20/18 17:24 Pulse Rate 95 H 04/20/18 17:24 Respiratory Rate 16 04/20/18 17:24 Blood Pressure 144/80 04/20/18 17:24 O2 Sat by Pulse Oximetry 100 04/20/18 17:24 Pain Scale Pain Intensity 6 - Physical Exam General Appearance: mild distress Eye Exam: PERRL/EOMI, eyes nml inspection Ears, Nose, Throat Exam: normal ENT inspection, pharynx normal, moist mucous membranes Neck Exam: normal inspection, non-tender, supple, full range of motion Respiratory Exam: normal breath sounds, lungs clear, No respiratory distress Cardiovascular Exam: regular rate/rhythm, normal heart sounds Gastrointestinal/Abdomen Exam: soft, normal bowel sounds, tenderness ( epigastric tenderness), No distention, No mass, No guarding, No pulsatile mass Back Exam: normal inspection, normal range of motion, No CVA tenderness, No vertebral tenderness Extremity Exam: normal inspection, normal range of motion, pelvis stable Neurologic Exam: alert, oriented x 3, cooperative, stiff straw hat washer II-XII nml as tested, normal mood/affect, nml cerebellar function, sensation nml, No motor deficits Skin Exam: normal color, warm, dry SpO2 Interpretation: normal (100%) SpO2: 100 Oxygen Delivery: Room Air - Course Nursing assessment & vital signs reviewed: Yes EKG Interpreted by Me: RATE (85 bpm), Sinus Rhythm, NORMAL AXIS, Other (EKG: Normal sinus rhythm, 85 beats per minute, normal axis, no acute ST or T wave changes) Ordered Tests: Active Orders 24 hr Category Date Time Status EKG-ER Only STAT Care 04/20/18 17:52 Active IV Insertion STAT Care 04/20/18 17:52 Active AMYLASE Stat Lab 04/20/18 18:30 Completed CBC W DIFF Stat Lab 04/20/18 Completed CMP Stat Lab 04/20/18 18:30 Completed LIPASE Stat Lab 04/20/18 18:30 Completed TROPONIN Q3H Lab 04/20/18 Completed TROPONIN Q3H Lab 04/20/18 21:00 Ordered TROPONIN Q3H Lab 04/21/18 00:00 Ordered TROPONIN Q3H Lab 04/21/18 03:00 Ordered TROPONIN Q3H Lab 04/21/18 06:00 Ordered Medication Summary Discontinued Medications Generic Name Dose Route Start Last Admin Trade Name Elda PRN Reason Stop Dose Admin Sodium Chloride 1,000 mls @ 999 mls/hr 04/20/18 17:52 04/20/18 19:31 Sodium Chloride 0.9% 1000 Ml IV 04/20/18 18:52 Infused .Q1H1M STA Infusion Sodium Chloride 1,000 mls @ 999 mls/hr 04/20/18 17:54 04/20/18 19:31 Sodium Chloride 0.9% 1000 Ml IV 04/20/18 18:54 999 mls/hr .Q1H1M STA Administration Sodium Chloride Confirm 04/20/18 18:14 Sodium Chloride 0.9% 1000 Ml Administered 04/20/18 18:15 Dose 1,000 mls @ ud .ROUTE .STK-MED ONE Sodium Chloride Confirm 04/20/18 19:30 Sodium Chloride 0.9% 1000 Ml Administered 04/20/18 19:31 Dose 1,000 mls @ ud .ROUTE .STK-MED ONE Promethazine HCl 12.5 mg 04/20/18 17:52 04/20/18 18:18 Phenergan 25 Mg Inj IV 04/20/18 17:53 25 mg STAT ONE Administration Promethazine HCl Confirm 04/20/18 18:14 Phenergan 25 Mg Inj Administered 04/20/18 18:15 Dose 25 mg .ROUTE .STK-MED ONE Lab/Rad Data: Laboratory Result Diagrams 04/20/18 Unknown 04/20/18 18:30 Laboratory Results 04/20/18 04/20/18 04/20/18 Range/Units Unknown Unknown 18:30 WBC 18.2 H (4.0-10.5) K/mm3 RBC 5.46 (4.1-5.6) M/mm3 Hgb 16.1 (12.5-18.0) gm/dl Hct 44.8 (42-50) % MCV 82.1 (78-100) fl MCH 29.5 (26-32) pg MCHC 35.9 (32-36) g/dl RDW 13.3 (11.5-14.0) % Plt Count 414 (150-450) K/mm3 MPV 11.0 H (6-9.5) fl Gran % 77.1 H (36.0-66.0) % Eos # (Auto) 0.02 (0-0.5) Absolute Lymphs (auto) 2.93 (1.0-4.6) Absolute Monos (auto) 1.19 (0.0-1.3) Lymphocytes % 16.1 L (24.0-44.0) % Monocytes % 6.6 (0.0-12.0) % Eosinophils % 0.1 (0.00-5.0) % Basophils % 0.1 (0.0-0.4) % Absolute Granulocytes 13.99 H (1.4-6.9) Basophils # 0.02 (0-0.4) Sodium 140 (137-145) mmol/L Potassium 3.5 (3.5-5.1) mmol/L Chloride 102 (98-107) mmol/L Carbon Dioxide 21 L (22-30) mmol/L Anion Gap 19.9 H (5-15) MEQ/L BUN 19 (9-20) mg/dL Creatinine 0.73 (0.66-1.25) mg/dL Estimated GFR > 60.0 ML/MIN Glucose 119 H (74-106) mg/dL Calcium 10.3 H (8.4-10.2) mg/dL Total Bilirubin 0.80 (0.2-1.3) mg/dL AST 33 (17-59) U/L ALT 59 H (0-50) U/L Alkaline Phosphatase 117 (38-126) U/L Troponin I < 0.012 (0.000-0.034) ng/mL Serum Total Protein 9.7 H (6.3-8.2) g/dL Albumin 5.3 H (3.5-5.0) g/dL Amylase 53 (30-110) U/L Lipase 77 (23-300) U/L - Progress Progress: improved Progress Note: 04/20/18 19:34 Patient is feeling much better after 1 L of normal saline. Patient white count is elevated 18.2 hemoglobin 16.1 hematocrit 44.8. Chemistry is essentially normal. Troponin is less than 0.012 EKG normal sinus rhythm 85 bpm normal axis no acute ST or T wave changes are noted. Will plan to give the patient a second liter of fluids. Plan to go home with Zofran. - Departure Time of Disposition: 19:35 Departure Disposition: Home Clinical Impression: Dehydration Vomiting Qualifiers: Vomiting type: unspecified Vomiting Intractability: unspecified Nausea presence : with nausea Qualified Code(s): R11.2 - Nausea with vomiting, unspecified Condition: Fair Critical Care Time: No Referrals: DOCTOR,NO FAMILY [Primary Care Provider] - Additional Instructions: Return home. Plenty of fluids. Clear fluids only 24-48 hours if nausea vomiting. Zofran 4 mg orally every 4-6 hours as needed for nausea and vomiting. Follow-up with your family doctor if symptoms are worse no better in 24 hours or persist longer than 48 hours. Return for acute distress or for severe symptoms.
[2018-04-20 18:04] LABS: BASOPHIL % 0.1 % (0.0-0.4); Basophil (Absolute #) 0.02 (0-0.4); Eosinophil % 0.1 % (0.00-5.0); Eosinophil (Absolute #) 0.02 (0-0.5); Granulocyte Absolute (ANC) 13.99 (1.4-6.9); Granulocytes % 77.1 % (36.0-66.0); Hematocrit 44.8 % (42-50); Hemoglobin 16.1 gm/dl (12.5-18.0); Lymphocyte (Absolute #) 2.93 (1.0-4.6); Lymphocytes % 16.1 % (24.0-44.0); Mean Cell Volume 82.1 fl (78-100); Mean Corpuscular Hemoglobin 29.5 pg (26-32); Mean Corpuscular Hgb Concent. 35.9 g/dl (32-36); Monocyte (Absolute #) 1.19 (0.0-1.3); Monocytes % 6.6 % (0.0-12.0); Platelet Count 414 K/mm3 (150-450); Red Blood Count 5.46 M/mm3 (4.1-5.6); Red Cell Distribution Width 13.3 % (11.5-14.0); White Blood Count 18.2 K/mm3 (4.0-10.5)
[2018-04-20] MEDS ORDERED: Sodium Chloride 0.9% 1000 ML 1,000 ML ONE ×2 (18:14→19:30)
[2018-04-20] MEDS ORDERED: Phenergan 25 MG INJ ONE (18:14)
[2018-04-20 18:35] LABS: ALBUMIN 5.3 g/dL (3.5-5.0); ALKALINE PHOSPHATASE 117 U/L (38-126); AMYLASE 53 U/L (30-110); ANION GAP 19.9 MEQ/L (5-15); BLOOD UREA NITROGEN 19 mg/dL (9-20); CHLORIDE 102 mmol/L (98-107); Calcium 10.3 mg/dL (8.4-10.2); Carbon Dioxide 21 mmol/L (22-30); Creatinine 1 0.73 mg/dL (0.66-1.25); Glucose 119 mg/dL (74-106); LIPASE 77 U/L (23-300); Potassium 3.5 mmol/L (3.5-5.1); SGOT/AST 33 U/L (17-59); SGPT/ALT 59 U/L (0-50); SODIUM 140 mmol/L (137-145); Total Protein 9.7 g/dL (6.3-8.2)
[2018-04-20 19:37] VITALS: O2SAT 100
[2018-04-20] MEDS ORDERED: ZOFRAN ODT 4 MG PO ONE (19:41)
[2018-04-20] MEDS ORDERED: ZOFRAN ODT 4 MG ONE (19:48)
[2018-04-20 20:52] VITALS: BP 137/74; PULSE 95
== END 2018-04-20 20:52 | disposition home or self-care (01) ==
LOC: ED 17:10
DX: E86.0 Dehydration (principal); R11.2 Nausea with vomiting, unspecified; R10.13 Epigastric pain; Z79.899 Other long term (current) drug therapy
CPT/HCPCS: 36000; 36415; 80053; 82150; 83690; 84484; 85025; 93005; 96360; 96374; 96375; 99284; J2550; Q0162

== ENCOUNTER 2018-06-16 23:51 | Emergency (ER) | payer SELFPAY ==
--- NOTE | 2018-06-17 00:31 | ERPHSYRPT ---
- History of Present Illness Time Seen by Provider: 06/17/18 00:20 Historian: patient Exam Limitations: no limitations Physician History: 37 y/o male with history of gastritis comes to the ER with complaints of epigastric abdominal pain that started this evening. Pt describes the pain as burning, constant, as high as a 8/10 and pt has not taken any pain meds. Pt is on prevacid and zantac. Pt has an appointment with GI coming up this month. Pt has been seen in the ER with similar complaints and was diagnosed with gastritis. Timing/Duration: today Activities at Onset: none Quality: burning Abdominal Pain Onset Location: epigastric Pain Radiation: no radiation Severity of Pain-Max: severe Severity of Pain-Current: severe Modifying Factors: Improves With: nothing Associated Symptoms: denies symptoms Previous symptoms: same symptoms as today Allergies/Adverse Reactions: No Known Drug Allergies Allergy (Verified 04/20/18 17:28) Home Medications: Omeprazole Magnesium [Prilosec Otc] 20 mg DAILY 04/20/18 [History] Ranitidine HCl [Zantac] 150 mg DAILY 04/20/18 [History] Hx Influenza Vaccination/Date Given: No Hx Pneumococcal Vaccination/Date Given: No - Review of Systems Constitutional: No Fever, No Chills Eyes: No Symptoms Ears, Nose, & Throat: No Symptoms Respiratory: No Cough, No Dyspnea Cardiac: No Chest Pain, No Edema, No Syncope Abdominal/Gastrointestinal: Abdominal Pain, No Nausea, No Vomiting, No Diarrhea Genitourinary Symptoms: No Dysuria Musculoskeletal: No Back Pain, No Neck Pain Skin: No Rash Neurological: No Dizziness, No Focal Weakness, No Sensory Changes Psychological: No Symptoms Endocrine: No Symptoms All Other Systems: Reviewed and Negative - Past Medical History Pertinent Past Medical History: No - Past Surgical History Past Surgical History: Yes Gastrointestinal: Appendectomy Musculoskeletal: Orthopedic Surgery Other Surgical History: ankle surgery - Social History Smoking Status: Never smoker Exposure to second hand smoke: Yes Drug Use: marijuana Patient Lives Alone: No - Nursing Vital Signs Nursing Vital Signs: Initial Vital Signs Temperature 97.4 F 06/16/18 23:52 Pulse Rate 92 H 06/16/18 23:52 Respiratory Rate 22 06/16/18 23:52 Blood Pressure 185/102 06/16/18 23:52 O2 Sat by Pulse Oximetry 100 06/16/18 23:52 Pain Scale Pain Intensity 8 - Physical Exam General Appearance: moderate distress, alert Eye Exam: PERRL/EOMI, eyes nml inspection Ears, Nose, Throat Exam: normal ENT inspection, pharynx normal, moist mucous membranes Neck Exam: normal inspection, non-tender, supple, full range of motion Respiratory Exam: normal breath sounds, lungs clear, No respiratory distress Cardiovascular Exam: regular rate/rhythm, normal heart sounds Gastrointestinal/Abdomen Exam: soft, normal bowel sounds, tenderness, No mass Back Exam: normal inspection, normal range of motion, No CVA tenderness, No vertebral tenderness Extremity Exam: normal inspection, normal range of motion, pelvis stable Neurologic Exam: alert, oriented x 3, cooperative, normal mood/affect, nml cerebellar function, sensation nml, No motor deficits Skin Exam: normal color, warm, dry - Course Nursing assessment & vital signs reviewed: Yes Ordered Tests: Active Orders 24 hr Category Date Time Status IV Insertion STAT Care 06/17/18 00:27 Active NPO (ED) STAT Care 06/17/18 00:27 Active AMYLASE Stat Lab 06/17/18 00:27 Completed CBC W DIFF Stat Lab 06/17/18 00:27 Completed CMP Stat Lab 06/17/18 00:27 Completed LIPASE Stat Lab 06/17/18 00:27 Completed PT INR [PROTIME WITH INR] Stat Lab 06/17/18 01:47 Completed PTT Stat Lab 06/17/18 01:47 Completed Medication Summary Generic Name Dose Route Start Last Admin Trade Name Freq PRN Reason Stop Dose Admin Sodium Chloride 1,000 mls @ 999 mls/hr 06/17/18 01:57 06/17/18 02:21 Sodium Chloride 0.9% 1000 Ml IV 06/17/18 02:57 999 mls/hr .Q1H1M STA Administration Discontinued Medications Generic Name Dose Route Start Last Admin Trade Name Freq PRN Reason Stop Dose Admin Sodium Chloride 1,000 mls @ 999 mls/hr 06/17/18 00:27 06/17/18 01:11 Sodium Chloride 0.9% 1000 Ml IV 06/17/18 01:27 999 mls/hr .Q1H1M STA Administration Sodium Chloride Confirm 06/17/18 01:07 Sodium Chloride 0.9% 1000 Ml Administered 06/17/18 01:08 Dose 1,000 mls @ ud .ROUTE .STK-MED ONE Sodium Chloride Confirm 06/17/18 02:15 Sodium Chloride 0.9% 1000 Ml Administered 06/17/18 02:16 Dose 1,000 mls @ ud .ROUTE .STK-MED ONE Ketorolac Tromethamine 30 mg 06/17/18 01:56 06/17/18 02:18 Toradol 30 Mg Injection IV 06/17/18 01:57 30 mg STAT ONE Administration Ketorolac Tromethamine Confirm 06/17/18 02:15 Toradol 30 Mg Injection Administered 06/17/18 02:16 Dose 30 mg .ROUTE .STK-MED ONE Ondansetron HCl 4 mg 06/17/18 00:27 06/17/18 01:12 Zofran 4 Mg/2 Ml Vial IV 06/17/18 00:28 4 mg STAT ONE Administration Ondansetron HCl Confirm 06/17/18 01:07 Zofran 4 Mg/2 Ml Vial Administered 06/17/18 01:08 Dose 4 mg .ROUTE .STK-MED ONE Pantoprazole Sodium 40 mg 06/17/18 00:27 06/17/18 01:11 Protonix 40 Mg Iv IV 06/17/18 00:28 40 mg STAT ONE Administration Pantoprazole Sodium Confirm 06/17/18 01:07 Protonix 40 Mg Iv Administered 06/17/18 01:08 Dose 40 mg IV .STK-MED ONE Promethazine HCl 12.5 mg 06/17/18 01:58 06/17/18 02:19 Phenergan 25 Mg Inj IV 06/17/18 01:59 12.5 mg STAT ONE Administration Promethazine HCl Confirm 06/17/18 02:15 Phenergan 25 Mg Inj Administered 06/17/18 02:16 Dose 25 mg .ROUTE .STK-MED ONE Sucralfate 1 g 06/17/18 01:58 06/17/18 02:18 Carafate 1 Gm PO 06/17/18 01:59 1 g STAT ONE Administration Sucralfate Confirm 06/17/18 02:15 Carafate 1 Gm Administered 06/17/18 02:16 Dose 1 g PO .STK-MED ONE Lab/Rad Data: Laboratory Result Diagrams 06/17/18 00:27 06/17/18 00:27 Laboratory Results 06/17/18 06/17/18 06/17/18 Range/Units 01:47 00:27 00:27 WBC 17.0 H (4.0-10.5) K/mm3 RBC 5.25 (4.1-5.6) M/mm3 Hgb 15.5 (12.5-18.0) gm/dl Hct 44.2 (42-50) % MCV 84.2 (78-100) fl MCH 29.5 (26-32) pg MCHC 35.1 (32-36) g/dl RDW 13.8 (11.5-14.0) % Plt Count 443 (150-450) K/mm3 MPV 10.4 H (6-9.5) fl Gran % 77.8 H (36.0-66.0) % Eos # (Auto) 0.05 (0-0.5) Absolute Lymphs (auto) 2.89 (1.0-4.6) Absolute Monos (auto) 0.80 (0.0-1.3) Lymphocytes % 17.0 L (24.0-44.0) % Monocytes % 4.7 (0.0-12.0) % Eosinophils % 0.3 (0.00-5.0) % Basophils % 0.2 (0.0-0.4) % Absolute Granulocytes 13.26 H (1.4-6.9) Basophils # 0.04 (0-0.4) PT 11.5 (8.83-12.87) SECONDS INR 0.99 (0.8-3.0) APTT 30.1 (24.1-36.1) SECONDS Sodium 144 (137-145) mmol/L Potassium 3.7 (3.5-5.1) mmol/L Chloride 106 (98-107) mmol/L Carbon Dioxide 20 L (22-30) mmol/L Anion Gap 21.3 H (5-15) MEQ/L BUN 15 (9-20) mg/dL Creatinine 0.61 L (0.66-1.25) mg/dL Estimated GFR > 60.0 ML/MIN Glucose 107 H (74-106) mg/dL Calcium 10.7 H (8.4-10.2) mg/dL Total Bilirubin 0.80 (0.2-1.3) mg/dL AST 37 (17-59) U/L ALT 48 (0-50) U/L Alkaline Phosphatase 126 (38-126) U/L Serum Total Protein 10.4 H (6.3-8.2) g/dL Albumin 5.5 H (3.5-5.0) g/dL Amylase 104 (30-110) U/L Lipase 72 (23-300) U/L - Progress Progress: improved Progress Note: 06/17/18 02:47 The patient feels better after receiving 2 bags of NS, zofran, phenergan, carafate and protonix. The white count is elevated, as well as an elevated total protein and hypercalcemia. Pt will F/U with his PCP as well as GI for gastritis. - Departure Time of Disposition: 02:49 Departure Disposition: Home Clinical Impression: Gastritis and duodenitis, Elevated total protein, Hypercalcemia Condition: Stable Critical Care Time: No Referrals: DOCTOR,NO FAMILY [Primary Care Provider] - Instructions: Gastritis (DC), Hypercalcemia (DC) Additional Instructions: Follow up with your primary care doctor for elevated total protein and elevated calcium levels. Follow up with your gastroenteroloist for gastritis. Prescriptions: Ondansetron [Zofran Odt] 4 mg PO QID PRN #20 tab.rapdis PRN Reason: Nausea/Vomiting
[2018-06-17 00:34] VITALS: BP 185/102; O2SAT 100
[2018-06-17] MEDS ORDERED: PROTONIX 40 MG IV IV ONE (01:07)
[2018-06-17] MEDS ORDERED: Zofran 4 MG/2 ML VIAL ONE (01:07)
[2018-06-17] MEDS ORDERED: Sodium Chloride 0.9% 1000 ML 1,000 ML ONE ×2 (01:07→02:15)
[2018-06-17] MEDS: PROTONIX 40 MG IV IV ONE (01:11)
[2018-06-17] MEDS: Sodium Chloride 0.9% 1000 ML 1,000 ML IV STA ×2 (01:11→02:21)
[2018-06-17] MEDS: Zofran 4 MG/2 ML VIAL IV ONE (01:12)
[2018-06-17 01:28] LABS: BASOPHIL % 0.2 % (0.0-0.4); Basophil (Absolute #) 0.04 (0-0.4); Eosinophil % 0.3 % (0.00-5.0); Eosinophil (Absolute #) 0.05 (0-0.5); Granulocyte Absolute (ANC) 13.26 (1.4-6.9); Granulocytes % 77.8 % (36.0-66.0); Hematocrit 44.2 % (42-50); Hemoglobin 15.5 gm/dl (12.5-18.0); Lymphocyte (Absolute #) 2.89 (1.0-4.6); Mean Cell Volume 84.2 fl (78-100); Mean Corpuscular Hemoglobin 29.5 pg (26-32); Mean Corpuscular Hgb Concent. 35.1 g/dl (32-36); Mean Platelet Volume 10.4 fl (6-9.5); Monocytes % 4.7 % (0.0-12.0); Platelet Count 443 K/mm3 (150-450); Red Blood Count 5.25 M/mm3 (4.1-5.6); Red Cell Distribution Width 13.8 % (11.5-14.0)
[2018-06-17 01:48] LABS: ALBUMIN 5.5 g/dL (3.5-5.0); ALKALINE PHOSPHATASE 126 U/L (38-126); AMYLASE 104 U/L (30-110); ANION GAP 21.3 MEQ/L (5-15); BLOOD UREA NITROGEN 15 mg/dL (9-20); CHLORIDE 106 mmol/L (98-107); Calcium 10.7 mg/dL (8.4-10.2); Carbon Dioxide 20 mmol/L (22-30); Creatinine 1 0.61 mg/dL (0.66-1.25); Glucose 107 mg/dL (74-106); LIPASE 72 U/L (23-300); Potassium 3.7 mmol/L (3.5-5.1); SGOT/AST 37 U/L (17-59); SODIUM 144 mmol/L (137-145); Total Protein 10.4 g/dL (6.3-8.2)
[2018-06-17 01:53] LABS: INR 0.99 (0.8-3.0)
[2018-06-17 01:55] LABS: SGPT/ALT 48 U/L (0-50)
[2018-06-17 01:56] LABS: PTT 30.1 SECONDS (24.1-36.1)
[2018-06-17] MEDS ORDERED: Carafate 1 GM PO ONE (02:15)
[2018-06-17] MEDS ORDERED: Phenergan 25 MG INJ ONE (02:15)
[2018-06-17] MEDS ORDERED: TORAdol 30 mg Injection ONE (02:15)
[2018-06-17] MEDS: TORAdol 30 mg Injection IV ONE (02:18)
[2018-06-17] MEDS: Carafate 1 GM PO ONE (02:18)
[2018-06-17] MEDS: Phenergan 25 MG INJ IV ONE (02:19)
[2018-06-17 02:56] VITALS: PULSE 95
== END 2018-06-17 02:58 | disposition home or self-care (01) ==
LOC: ED 23:51
DX: K29.70 Gastritis, unspecified, without bleeding (principal); K29.80 Duodenitis without bleeding; R79.82 Elevated C-reactive protein (CRP); E83.52 Hypercalcemia; Z79.899 Other long term (current) drug therapy; F12.90 Cannabis use, unspecified, uncomplicated
CPT/HCPCS: 36000; 36415; 80053; 82150; 83690; 85025; 85610; 85730; 96360; 96361; 96374; 96375; 99284; J1885; J2405; J2550; A9270-GY

== ENCOUNTER 2018-07-11 00:09 | Emergency (ER) | payer SELFPAY ==
[2018-07-11] MEDS ORDERED: Phenergan 25 MG INJ ONE (00:48)
--- NOTE | 2018-07-11 00:48 | ERPHSYRPT ---
- History of Present Illness Time Seen by Provider: 07/11/18 00:30 Historian: patient, family Exam Limitations: no limitations Patient Subjective Stated Complaint: pt states that he has been vomiting since approx 1529 and has been having epigastric to rt upper quad pain. Triage Nursing Assessment: pt alert and oriented, asnwers questions approp. pt back per wheelchair transfers to stretcher with minimal assist of 1. skin moist , cool, pale. pt vomiting, bile in emesis bag. pt gagging himself with finger, states he can not vomit otherwise. abd soft, bowel sounds present x4.pt reports passing flatus. Physician History: 37 y/o white male presents with report of vomiting since 1529 yesterday afternoon. he has zofran at home but unable to hold it dowen. here in ED pt witnessed sticking his finger down his throat to make him gag and vomit otherwise he cannot. pt has been to several EDs for same issue he had been at [facility] ED prior to arrival here but was waiting 2.5 hours without being seen before leaving there to come here. pt has had an appendectomy. pts most recent visit prior to this visit was 06/16/18. pt does not have any insurance and does not have a pcp. pt had one episode of diarrhea at 1600 yesterday. Pt seen here in February, April and Jun for same sx. pts sig other does all the answering of questions Timing/Duration: hour(s) (9-10), constant Activities at Onset: none Quality: burning Abdominal Pain Onset Location: RUQ Pain Radiation: no radiation Severity of Pain-Max: mild Severity of Pain-Current: mild Modifying Factors: Improves With: vomiting (improves). Worsens With: analgesics , antacids, coughing, eating Associated Symptoms: diarrhea (one episode), nausea, vomiting, No back, No chest pain, No diaphoresis, No fever/chills Previous symptoms: same symptoms as today, recently seen, recently treated Allergies/Adverse Reactions: No Known Drug Allergies Allergy (Verified 07/11/18 00:30) Home Medications: Omeprazole Magnesium [Prilosec Otc] 20 mg DAILY 04/20/18 [History] Ranitidine HCl [Zantac] 150 mg DAILY 04/20/18 [History] Hx Tetanus, Diphtheria Vaccination/Date Given: Yes Hx Influenza Vaccination/Date Given: No Hx Pneumococcal Vaccination/Date Given: No Immunizations Up to Date: Yes - Review of Systems Constitutional: No Symptoms, No Fever, No Chills Eyes: No Symptoms, No Discharge Ears, Nose, & Throat: No Symptoms, No Ear Pain Respiratory: No Symptoms, No Cough, No Dyspnea, No Stridor, No Wheezing Cardiac: No Symptoms, No Chest Pain, No Palpitations, No Syncope Abdominal/Gastrointestinal: Abdominal Pain (ruq burning), Nausea, Vomiting, Diarrhea (single episode) Genitourinary Symptoms: No Symptoms, No Dysuria, No Frequency, No Hematuria Musculoskeletal: No Symptoms, No Back Pain, No Neck Pain, No Deformity, No Fall , No Injury Skin: No Symptoms Neurological: No Symptoms Psychological: No Symptoms Endocrine: No Symptoms Hematologic/Lymphatic: No Symptoms Immunological/Allergic: No Symptoms All Other Systems: Reviewed and Negative - Past Medical History Pertinent Past Medical History: No Neurological History: No Pertinent History ENT History: No Pertinent History Cardiac History: No Pertinent History Respiratory History: No Pertinent History Endocrine Medical History: No Pertinent History Musculoskeletal History: No Pertinent History GI Medical History: No Pertinent History History: No Pertinent History Psycho-Social History: No Pertinent History Male Reproductive Disorders: No Pertinent History - Past Surgical History Past Surgical History: Yes Neuro Surgical History: No Pertinent History Cardiac: No Pertinent History Respiratory: No Pertinent History Gastrointestinal: Appendectomy Genitourinary: No Pertinent History Musculoskeletal: Orthopedic Surgery Male Surgical History: No Pertinent History Other Surgical History: ankle surgery - Social History Smoking Status: Never smoker Exposure to second hand smoke: Yes Drug Use: marijuana Patient Lives Alone: No - Nursing Vital Signs Nursing Vital Signs: Initial Vital Signs Temperature 98.2 F 07/11/18 00:19 Pulse Rate 80 07/11/18 00:19 Respiratory Rate 22 07/11/18 00:19 Blood Pressure 185/112 07/11/18 00:19 O2 Sat by Pulse Oximetry 100 07/11/18 00:19 Pain Scale Pain Intensity 6 - Physical Exam Eye Exam: PERRL/EOMI, eyes nml inspection Ears, Nose, Throat Exam: normal ENT inspection, TMs normal Neck Exam: normal inspection, non-tender, supple, full range of motion Respiratory Exam: normal breath sounds, lungs clear, airway intact, No chest tenderness, No respiratory distress, No accessory muscle use, No rhonchi, No wheezing, No stridor Cardiovascular Exam: regular rate/rhythm, normal heart sounds, normal peripheral pulses Gastrointestinal/Abdomen Exam: soft, normal bowel sounds, tenderness (mild ruq) , No distention, No guarding, No rebound Rectal Exam: not done Back Exam: normal inspection, normal range of motion, No CVA tenderness, No vertebral tenderness Extremity Exam: normal inspection, normal range of motion, pelvis stable Neurologic Exam: alert, oriented x 3, cooperative, edge finisher II-XII nml as tested Skin Exam: normal color, warm, dry Lymphatic Exam: No adenopathy SpO2 Interpretation: normal SpO2: 100 Oxygen Delivery: Room Air - Course Nursing assessment & vital signs reviewed: Yes Ordered Tests: Active Orders 24 hr Category Date Time Status Clean Catch Urine Specimen STAT Care 07/11/18 02:53 Active IV Insertion STAT Care 07/11/18 00:54 Active ABDOMEN AND PELVIS W/0 CONTRAS [CT] Stat Exams 07/11/18 02:54 Taken AMYLASE Stat Lab 07/11/18 00:45 Completed CBC W DIFF Stat Lab 07/11/18 00:54 Completed CMP Stat Lab 07/11/18 00:45 Completed LIPASE Stat Lab 07/11/18 00:45 Completed Lactic Acid Stat Lab 07/11/18 00:55 Completed Lactic Acid Stat Lab 07/11/18 03:40 Completed UA W/RFX UR CULTURE Stat Lab 07/11/18 02:00 Completed Urine Triage Profile Stat Lab 07/11/18 01:58 Completed Medication Summary Discontinued Medications Generic Name Dose Route Start Last Admin Trade Name Freq PRN Reason Stop Dose Admin Al Hydrox/Mg Hydrox/Simethicone Confirm 07/11/18 03:30 Maalox Es 30 Ml Unit Dose Administered 07/11/18 03:31 Dose 30 ml .ROUTE .STK-MED ONE Hydromorphone HCl 0.5 mg 07/11/18 04:40 Hydromorphone 1 Mg/Ml Ampule IV 07/11/18 04:41 STAT ONE Hydromorphone HCl Confirm 07/11/18 04:55 Hydromorphone 1 Mg/Ml Ampule Administered 07/11/18 04:56 Dose 1 mg .ROUTE .STK-MED ONE Sodium Chloride Confirm 07/11/18 00:49 Sodium Chloride 0.9% 1000 Ml Administered 07/11/18 00:50 Dose 1,000 mls @ ud .ROUTE .STK-MED ONE Sodium Chloride 1,000 mls @ 999 mls/hr 07/11/18 00:54 07/11/18 04:10 Sodium Chloride 0.9% 1000 Ml IV 07/11/18 01:54 Infused .Q1H1M STA Infusion Sodium Chloride 1,000 mls @ 999 mls/hr 07/11/18 01:33 07/11/18 04:11 Sodium Chloride 0.9% 1000 Ml IV 07/11/18 02:33 Infused .Q1H1M STA Infusion Sodium Chloride Confirm 07/11/18 01:48 Sodium Chloride 0.9% 1000 Ml Administered 07/11/18 01:49 Dose 1,000 mls @ ud .ROUTE .STK-MED ONE Lidocaine HCl Confirm 07/11/18 03:30 Xylocaine Hcl Viscous * Administered 07/11/18 03:31 Dose 15 ml .ROUTE .STK-MED ONE Magnesium Hydroxide 45 ml 07/11/18 02:55 07/11/18 03:41 Gi Cocktail 45 Ml (Maalox/Lidocaine) PO 07/11/18 02:56 45 ml STAT ONE Administration Promethazine HCl Confirm 07/11/18 00:48 Phenergan 25 Mg Inj Administered 07/11/18 00:49 Dose 25 mg .ROUTE .STK-MED ONE Promethazine HCl 12.5 mg 07/11/18 00:54 07/11/18 00:57 Phenergan 25 Mg Inj IV 07/11/18 00:55 12.5 mg STAT ONE Administration Lab/Rad Data: Laboratory Result Diagrams 07/11/18 00:54 07/11/18 00:45 Laboratory Results 07/11/18 07/11/18 07/11/18 Range/Units 03:40 02:00 01:58 WBC (4.0-10.5) K/mm3 RBC (4.1-5.6) M/mm3 Hgb (12.5-18.0) gm/dl Hct (42-50) % MCV (78-100) fl MCH (26-32) pg MCHC (32-36) g/dl RDW (11.5-14.0) % Plt Count (150-450) K/mm3 MPV (6-9.5) fl Gran % (36.0-66.0) % Eos # (Auto) (0-0.5) Absolute Lymphs (auto) (1.0-4.6) Absolute Monos (auto) (0.0-1.3) Lymphocytes % (24.0-44.0) % Monocytes % (0.0-12.0) % Eosinophils % (0.00-5.0) % Basophils % (0.0-0.4) % Absolute Granulocytes (1.4-6.9) Basophils # (0-0.4) Sodium (137-145) mmol/L Potassium (3.5-5.1) mmol/L Chloride (98-107) mmol/L Carbon Dioxide (22-30) mmol/L Anion Gap (5-15) MEQ/L BUN (9-20) mg/dL Creatinine (0.66-1.25) mg/dL Estimated GFR ML/MIN Glucose (74-106) mg/dL Lactic Acid 1.5 (0.4-2.0) Calcium (8.4-10.2) mg/dL Total Bilirubin (0.2-1.3) mg/dL AST (17-59) U/L ALT (0-50) U/L Alkaline Phosphatase (38-126) U/L Serum Total Protein (6.3-8.2) g/dL Albumin (3.5-5.0) g/dL Amylase (30-110) U/L Lipase (23-300) U/L Urine Color YELLOW (YELLOW) Urine Appearance CLEAR (CLEAR) Urine pH 6.0 (5-6) Ur Specific [place] 1.016 (1.005-1.025) Urine Protein NEGATIVE (Negative) Urine Ketones NEGATIVE (NEGATIVE) Urine Blood NEGATIVE (0-5) Leandro/ul Urine Nitrite NEGATIVE (NEGATIVE) Urine Bilirubin NEGATIVE (NEGATIVE) Urine Urobilinogen NEGATIVE (0-1) mg/dL Ur Leukocyte Esterase NEGATIVE (NEGATIVE) U Epithel Cells (Auto) NONE SEEN (FEW) /HPF Urine Culture Reflexed NO (NO) Urine Glucose NEGATIVE (NEGATIVE) mg/dL Urine Opiates Level POSITIVE (NEGATIVE) Ur Methadone NEGATIVE (NEGATIVE) Urine Barbiturates NEGATIVE (NEGATIVE) Ur Phencyclidine (PCP) NEGATIVE (NEGATIVE) Urine Amphetamine NEGATIVE (NEGATIVE) U Benzodiazepine Level NEGATIVE (NEGATIVE) Urine Cocaine NEGATIVE (NEGATIVE) Urine Marijuana (THC) POSITIVE (NEGATIVE) 07/11/18 07/11/18 07/11/18 Range/Units 00:55 00:54 00:45 WBC 14.4 H (4.0-10.5) K/mm3 RBC 5.07 (4.1-5.6) M/mm3 Hgb 15.2 (12.5-18.0) gm/dl Hct 42.1 (42-50) % MCV 83.0 (78-100) fl MCH 30.0 (26-32) pg MCHC 36.1 H (32-36) g/dl RDW 13.6 (11.5-14.0) % Plt Count 348 (150-450) K/mm3 MPV 10.7 H (6-9.5) fl Gran % 83.0 H (36.0-66.0) % Eos # (Auto) 0.02 (0-0.5) Absolute Lymphs (auto) 1.90 (1.0-4.6) Absolute Monos (auto) 0.52 (0.0-1.3) Lymphocytes % 13.2 L (24.0-44.0) % Monocytes % 3.6 (0.0-12.0) % Eosinophils % 0.1 (0.00-5.0) % Basophils % 0.1 (0.0-0.4) % Absolute Granulocytes 11.91 H (1.4-6.9) Basophils # 0.02 (0-0.4) Sodium 141 (137-145) mmol/L Potassium 3.7 (3.5-5.1) mmol/L Chloride 108 H (98-107) mmol/L Carbon Dioxide 18 L (22-30) mmol/L Anion Gap 18.8 H (5-15) MEQ/L BUN 12 (9-20) mg/dL Creatinine 0.49 L (0.66-1.25) mg/dL Estimated GFR > 60.0 ML/MIN Glucose 124 H (74-106) mg/dL Lactic Acid 2.6 H (0.4-2.0) Calcium 10.1 (8.4-10.2) mg/dL Total Bilirubin 0.50 (0.2-1.3) mg/dL AST 20 (17-59) U/L ALT 25 (0-50) U/L Alkaline Phosphatase 110 (38-126) U/L Serum Total Protein 9.0 H (6.3-8.2) g/dL Albumin 4.9 (3.5-5.0) g/dL Amylase 79 (30-110) U/L Lipase 49 (23-300) U/L Urine Color (YELLOW) Urine Appearance (CLEAR) Urine pH (5-6) Ur Specific [place] (1.005-1.025) Urine Protein (Negative) Urine Ketones (NEGATIVE) Urine Blood (0-5) Leandro/ul Urine Nitrite (NEGATIVE) Urine Bilirubin (NEGATIVE) Urine Urobilinogen (0-1) mg/dL Ur Leukocyte Esterase (NEGATIVE) U Epithel Cells (Auto) (FEW) /HPF Urine Culture Reflexed (NO) Urine Glucose (NEGATIVE) mg/dL Urine Opiates Level (NEGATIVE) Ur Methadone (NEGATIVE) Urine Barbiturates (NEGATIVE) Ur Phencyclidine (PCP) (NEGATIVE) Urine Amphetamine (NEGATIVE) U Benzodiazepine Level (NEGATIVE) Urine Cocaine (NEGATIVE) Urine Marijuana (THC) (NEGATIVE) ct abd/pelvis-no acute process - Progress Progress: improved Counseled pt/family regarding: lab results, diagnosis, need for follow-up, rad results - Departure Time of Disposition: 05:01 Departure Disposition: Home Clinical Impression: Chronic vomiting, Chronic abdominal pain Condition: Stable Critical Care Time: No Referrals: DOCTOR,NO FAMILY [Primary Care Provider] - Additional Instructions: drink plenty of fluids. use your anti nausea medications as prescribed. follow up with primary doctor from list provided for further management
[2018-07-11] MEDS ORDERED: Sodium Chloride 0.9% 1000 ML 1,000 ML ONE ×2 (00:49→01:48)
[2018-07-11] MEDS ORDERED: Phenergan 25 MG INJ IV ONE (00:54)
[2018-07-11] MEDS ORDERED: Sodium Chloride 0.9% 1000 ML 1,000 ML IV STA ×2 (00:54→01:33)
[2018-07-11 01:02] LABS: BASOPHIL % 0.1 % (0.0-0.4); Basophil (Absolute #) 0.02 (0-0.4); Eosinophil % 0.1 % (0.00-5.0); Eosinophil (Absolute #) 0.02 (0-0.5); Granulocyte Absolute (ANC) 11.91 (1.4-6.9); Hematocrit 42.1 % (42-50); Hemoglobin 15.2 gm/dl (12.5-18.0); Lymphocytes % 13.2 % (24.0-44.0); Mean Corpuscular Hgb Concent. 36.1 g/dl (32-36); Mean Platelet Volume 10.7 fl (6-9.5); Monocyte (Absolute #) 0.52 (0.0-1.3); Monocytes % 3.6 % (0.0-12.0); Platelet Count 348 K/mm3 (150-450); Red Blood Count 5.07 M/mm3 (4.1-5.6); Red Cell Distribution Width 13.6 % (11.5-14.0); White Blood Count 14.4 K/mm3 (4.0-10.5)
[2018-07-11 01:07] LABS: Lactic Acid 2.6 (0.4-2.0)
[2018-07-11 01:41] LABS: ALBUMIN 4.9 g/dL (3.5-5.0); ALKALINE PHOSPHATASE 110 U/L (38-126); AMYLASE 79 U/L (30-110); ANION GAP 18.8 MEQ/L (5-15); BLOOD UREA NITROGEN 12 mg/dL (9-20); CHLORIDE 108 mmol/L (98-107); Calcium 10.1 mg/dL (8.4-10.2); Carbon Dioxide 18 mmol/L (22-30); Creatinine 1 0.49 mg/dL (0.66-1.25); Glucose 124 mg/dL (74-106); LIPASE 49 U/L (23-300); Potassium 3.7 mmol/L (3.5-5.1); SGOT/AST 20 U/L (17-59); SGPT/ALT 25 U/L (0-50); SODIUM 141 mmol/L (137-145)
[2018-07-11 02:20] LABS: Amphetamine,Urine NEGATIVE (NEGATIVE); Barbiturate,Urine NEGATIVE (NEGATIVE); Benzodiazepine,Urine NEGATIVE (NEGATIVE); Cocaine,Urine NEGATIVE (NEGATIVE); Methadone,Urine NEGATIVE (NEGATIVE); Opiate,Urine POSITIVE (NEGATIVE); PCP,Urine NEGATIVE (NEGATIVE); THC,Urine POSITIVE (NEGATIVE)
[2018-07-11] MEDS ORDERED: GI COCKTAIL 45 ML (Maalox/Lidocaine) PO ONE (02:55)
[2018-07-11 03:01] LABS: Appearance CLEAR (CLEAR); Bilirubin NEGATIVE (NEGATIVE); Blood NEGATIVE Ery/ul (0-5); Glucose NEGATIVE (NEGATIVE); Ketones NEGATIVE (NEGATIVE); Leukocyte Esterase NEGATIVE (NEGATIVE); Nitrite NEGATIVE (NEGATIVE); Protein,Urine Dip NEGATIVE (Negative); Specific Gravity 1.016 (1.005-1.025); Urobilinogen NEGATIVE mg/dL (0-1)
[2018-07-11] MEDS ORDERED: XYLOCAINE HCl Viscous ONE (03:30)
[2018-07-11] MEDS ORDERED: MAALOX ES 30 ML UNIT DOSE ONE (03:30)
[2018-07-11] MEDS ORDERED: Hydromorphone 1 mg/ml Ampule IV ONE (04:40)
[2018-07-11] MEDS ORDERED: Hydromorphone 1 mg/ml Ampule ONE (04:55)
[2018-07-11 05:16] VITALS: O2SAT 98
[2018-07-11 05:26] VITALS: BP 151/84; PULSE 90
--- NOTE | 2018-07-11 08:09 | XRAY ---
Indication: Right upper quadrant abdominal pain, emesis, diarrhea, and elevated WBC. Multiple contiguous axial images obtained through the abdomen and pelvis without contrast as ordered. Comparison: February 22, 2018. Lung bases are clear. Heart is not enlarged. Noncontrasted stomach and bowel loops appear nonobstructed. Again previous cholecystectomy. No free fluid/air. Spleen remains enlarged today measuring 13.1 cm in greatest axial dimension. Remaining liver, gallbladder, pancreas, spleen, adrenal glands, kidneys, ureters, bladder, and aorta appear unremarkable for noncontrast exam. Osseous structures intact again with remote-appearing L3 anterior wedging deformity and mild dextrorotoscoliosis. No ventral or inguinal hernias. Impression: 1. Again incidental splenomegaly and chronic bony findings. 2. No new or acute intra-abdominal/pelvic abnormalities on this noncontrast exam. Comment: Preliminary interpretation was made by C. No critical discrepancy. CTDI 17.24
== END 2018-07-11 05:27 | disposition home or self-care (01) ==
LOC: ED 00:09
DX: R11.2 Nausea with vomiting, unspecified (principal); R10.11 Right upper quadrant pain; R19.7 Diarrhea, unspecified; Z79.899 Other long term (current) drug therapy
CPT/HCPCS: 36000; 36415; 74176; 80053; 80307; 81001; 82150; 83605; 83690; 85025; 96360; 96361; 96372; 96374; 99285; J1170; J2550; A9270-GY

== ENCOUNTER 2019-03-23 07:53 | Emergency (ER) | payer MEDICAID ==
--- NOTE | 2019-03-23 08:04 | ERPHSYRPT ---
- History of Present Illness Time Seen by Provider: 03/23/19 08:02 Historian: patient, family Exam Limitations: no limitations Physician History: 38 y/o white male presents with vomiting. pt seen several times here for same issue over the past year. in addition, pt seen by other EDs. pt given a list of providers for outpatient care on 07/11/18. pt uses marijuana often. last used marijuana 2 days ago. sig other states he uses marijuana about once a week. Timing/Duration: yesterday Activities at Onset: none Quality: cramping Abdominal Pain Onset Location: generalized abdomen Pain Radiation: no radiation Severity of Pain-Max: mild Severity of Pain-Current: mild Associated Symptoms: nausea, vomiting, weakness Previous symptoms: same symptoms as today Allergies/Adverse Reactions: No Known Drug Allergies Allergy (Verified 07/11/18 00:30) Home Medications: raNITIdine HCl [Zantac] 150 mg DAILY 04/20/18 [History] Hx Tetanus, Diphtheria Vaccination/Date Given: Yes Hx Influenza Vaccination/Date Given: No Hx Pneumococcal Vaccination/Date Given: No - Review of Systems Constitutional: Weakness Eyes: No Symptoms Ears, Nose, & Throat: No Symptoms Respiratory: No Symptoms Cardiac: No Symptoms Abdominal/Gastrointestinal: Abdominal Pain (mild generalized), Nausea, Vomiting , Appetite Changes, No Diarrhea Genitourinary Symptoms: No Symptoms Musculoskeletal: No Symptoms Skin: No Symptoms Neurological: No Symptoms Psychological: No Symptoms Endocrine: No Symptoms Hematologic/Lymphatic: No Symptoms Immunological/Allergic: No Symptoms All Other Systems: Reviewed and Negative - Past Medical History Pertinent Past Medical History: No Neurological History: No Pertinent History ENT History: No Pertinent History Cardiac History: No Pertinent History Respiratory History: No Pertinent History Endocrine Medical History: No Pertinent History Musculoskeletal History: No Pertinent History GI Medical History: No Pertinent History History: No Pertinent History Psycho-Social History: No Pertinent History Male Reproductive Disorders: No Pertinent History - Past Surgical History Past Surgical History: Yes Neuro Surgical History: No Pertinent History Cardiac: No Pertinent History Respiratory: No Pertinent History Gastrointestinal: Appendectomy Genitourinary: No Pertinent History Musculoskeletal: Orthopedic Surgery Male Surgical History: No Pertinent History Other Surgical History: ankle surgery - Social History Smoking Status: Never smoker Exposure to second hand smoke: Yes Drug Use: marijuana Patient Lives Alone: No - Nursing Vital Signs Nursing Vital Signs: Initial Vital Signs Temperature 98.1 F 03/23/19 08:01 Pulse Rate 70 06/12/19 08:01 Respiratory Rate 22 03/23/19 08:01 Blood Pressure 187/110 03/23/19 08:01 O2 Sat by Pulse Oximetry 99 03/23/19 08:01 Pain Scale Pain Intensity 8 - Physical Exam General Appearance: mild distress, alert, anxiety Eye Exam: PERRL/EOMI, eyes nml inspection Ears, Nose, Throat Exam: normal ENT inspection, moist mucous membranes Neck Exam: normal inspection, non-tender, supple, full range of motion Respiratory Exam: normal breath sounds, lungs clear, airway intact, No chest tenderness, No respiratory distress Cardiovascular Exam: regular rate/rhythm, normal heart sounds, normal peripheral pulses Gastrointestinal/Abdomen Exam: soft, normal bowel sounds, tenderness (mild generalized), No guarding, No rebound Rectal Exam: not done Back Exam: normal inspection, normal range of motion, No CVA tenderness, No vertebral tenderness Extremity Exam: normal inspection, normal range of motion, pelvis stable Neurologic Exam: alert, oriented x 3, cooperative, line fixer II-XII nml as tested Skin Exam: normal color, warm, dry Lymphatic Exam: adenopathy SpO2 Interpretation: normal O2 Delivery: Room Air - Course Nursing assessment & vital signs reviewed: Yes Ordered Tests: Active Orders 24 hr Category Date Time Status Clean Catch Urine Specimen STAT Care 03/23/19 08:05 Active IV Insertion STAT Care 03/23/19 08:05 Active AMYLASE Stat Lab 03/23/19 08:25 Completed CBC W DIFF Stat Lab 03/23/19 08:25 Completed CMP Stat Lab 03/23/19 08:25 Completed LIPASE Stat Lab 03/23/19 08:25 Completed UA W/RFX UR CULTURE Stat Lab 03/23/19 09:42 Completed Urine Triage Profile Stat Lab 03/23/19 09:42 Completed Medication Summary Discontinued Medications Generic Name Dose Route Start Last Admin Trade Name Freq PRN Reason Stop Dose Admin Hydromorphone HCl 1 mg 03/23/19 11:07 03/23/19 11:17 Hydromorphone 1 Mg/Ml Ampule IV 03/23/19 11:08 1 mg STAT ONE Administration Hydromorphone HCl Confirm 03/23/19 11:17 Hydromorphone 1 Mg/Ml Ampule Administered 03/23/19 11:18 Dose 1 mg .ROUTE .STK-MED ONE Sodium Chloride 1,000 mls @ 999 mls/hr 03/23/19 08:05 03/23/19 09:39 Sodium Chloride 0.9% 1000 Ml IV 03/23/19 09:05 Infused .Q1H1M STA Infusion Sodium Chloride Confirm 03/23/19 08:13 Sodium Chloride 0.9% 1000 Ml Administered 03/23/19 08:14 Dose 1,000 mls @ ud .ROUTE .STK-MED ONE Sodium Chloride Confirm 03/23/19 09:38 Sodium Chloride 0.9% 1000 Ml Administered 03/23/19 09:39 Dose 1,000 mls @ ud .ROUTE .STK-MED ONE Sodium Chloride 1,000 mls @ 999 mls/hr 03/23/19 10:03 03/23/19 11:24 Sodium Chloride 0.9% 1000 Ml IV 03/23/19 11:03 Infused .Q1H1M STA Infusion Ondansetron HCl 4 mg 03/23/19 10:39 03/23/19 10:40 Zofran 4 Mg/2 Ml Vial IV 03/23/19 10:40 4 mg STAT ONE Administration Ondansetron HCl Confirm 03/23/19 10:39 Zofran 4 Mg/2 Ml Vial Administered 03/23/19 10:40 Dose 4 mg .ROUTE .STK-MED ONE Promethazine HCl 25 mg 03/23/19 08:05 03/23/19 08:14 Phenergan 25 Mg Inj IM 03/23/19 08:06 25 mg STAT ONE Administration Promethazine HCl Confirm 03/23/19 08:13 Phenergan 25 Mg Inj Administered 03/23/19 08:14 Dose 25 mg .ROUTE .STK-MED ONE Lab/Rad Data: Laboratory Result Diagrams 03/23/19 08:25 03/23/19 08:25 Laboratory Results 03/23/19 03/23/19 03/23/19 Range/Units 09:42 09:42 08:25 WBC (4.0-10.5) K/mm3 RBC (4.1-5.6) M/mm3 Hgb (12.5-18.0) gm/dl Hct (42-50) % MCV (78-100) fl MCH (26-32) pg MCHC (32-36) g/dl RDW (11.5-14.0) % Plt Count (150-450) K/mm3 MPV (6-9.5) fl Gran % (36.0-66.0) % Eos # (Auto) (0-0.5) Absolute Lymphs (auto) (1.0-4.6) Absolute Monos (auto) (0.0-1.3) Lymphocytes % (24.0-44.0) % Monocytes % (0.0-12.0) % Eosinophils % (0.00-5.0) % Basophils % (0.0-0.4) % Absolute Granulocytes (1.4-6.9) Basophils # (0-0.4) Sodium 142 (137-145) mmol/L Potassium 4.1 (3.5-5.1) mmol/L Chloride 104 (98-107) mmol/L Carbon Dioxide 23 (22-30) mmol/L Anion Gap 20.2 H (5-15) MEQ/L BUN 11 (9-20) mg/dL Creatinine 0.53 L (0.66-1.25) mg/dL Estimated GFR > 60.0 ML/MIN Glucose 131 H (74-106) mg/dL Calcium 10.4 H (8.4-10.2) mg/dL Total Bilirubin 0.60 (0.2-1.3) mg/dL AST 30 (17-59) U/L ALT 26 (0-50) U/L Alkaline Phosphatase 101 (38-126) U/L Serum Total Protein 9.1 H (6.3-8.2) g/dL Albumin 5.0 (3.5-5.0) g/dL Amylase 54 (30-110) U/L Lipase 44 (23-300) U/L Urine Color YELLOW (YELLOW) Urine Appearance CLEAR (CLEAR) Urine pH 7.0 (5-6) Ur Specific [place] 1.018 (1.005-1.025) Urine Protein 30 (Negative) Urine Ketones SMALL (NEGATIVE) Urine Blood NEGATIVE (0-5) Leandro/ul Urine Nitrite NEGATIVE (NEGATIVE) Urine Bilirubin NEGATIVE (NEGATIVE) Urine Urobilinogen NEGATIVE (0-1) mg/dL Ur Leukocyte Esterase NEGATIVE (NEGATIVE) Urine WBC (Auto) 0-2 (0-5) /HPF Urine RBC (Auto) NONE (0-2) /HPF U Epithel Cells (Auto) NONE (FEW) /HPF Urine Bacteria (Auto) NONE (NEGATIVE) /HPF Urine Mucus (Auto) SLIGHT (NEGATIVE) /HPF Urine Culture Reflexed NO (NO) Urine Glucose NEGATIVE (NEGATIVE) mg/dL Urine Opiates Level POSITIVE (NEGATIVE) Ur Methadone NEGATIVE (NEGATIVE) Urine Barbiturates NEGATIVE (NEGATIVE) Ur Phencyclidine (PCP) NEGATIVE (NEGATIVE) Urine Amphetamine NEGATIVE (NEGATIVE) U Benzodiazepine Level NEGATIVE (NEGATIVE) Urine Cocaine NEGATIVE (NEGATIVE) Urine Marijuana (THC) POSITIVE (NEGATIVE) 03/23/19 Range/Units 08:25 WBC 17.1 H (4.0-10.5) K/mm3 RBC 5.13 (4.1-5.6) M/mm3 Hgb 15.2 (12.5-18.0) gm/dl Hct 43.8 (42-50) % MCV 85.4 (78-100) fl MCH 29.6 (26-32) pg MCHC 34.7 (32-36) g/dl RDW 13.3 (11.5-14.0) % Plt Count 362 (150-450) K/mm3 MPV 11.0 H (6-9.5) fl Gran % 86.9 H (36.0-66.0) % Eos # (Auto) 0.01 (0-0.5) Absolute Lymphs (auto) 1.73 (1.0-4.6) Absolute Monos (auto) 0.48 (0.0-1.3) Lymphocytes % 10.1 L (24.0-44.0) % Monocytes % 2.8 (0.0-12.0) % Eosinophils % 0.1 (0.00-5.0) % Basophils % 0.1 (0.0-0.4) % Absolute Granulocytes 14.81 H (1.4-6.9) Basophils # 0.02 (0-0.4) Sodium (137-145) mmol/L Potassium (3.5-5.1) mmol/L Chloride (98-107) mmol/L Carbon Dioxide (22-30) mmol/L Anion Gap (5-15) MEQ/L BUN (9-20) mg/dL Creatinine (0.66-1.25) mg/dL Estimated GFR ML/MIN Glucose (74-106) mg/dL Calcium (8.4-10.2) mg/dL Total Bilirubin (0.2-1.3) mg/dL AST (17-59) U/L ALT (0-50) U/L Alkaline Phosphatase (38-126) U/L Serum Total Protein (6.3-8.2) g/dL Albumin (3.5-5.0) g/dL Amylase (30-110) U/L Lipase (23-300) U/L Urine Color (YELLOW) Urine Appearance (CLEAR) Urine pH (5-6) Ur Specific [place] (1.005-1.025) Urine Protein (Negative) Urine Ketones (NEGATIVE) Urine Blood (0-5) Leandro/ul Urine Nitrite (NEGATIVE) Urine Bilirubin (NEGATIVE) Urine Urobilinogen (0-1) mg/dL Ur Leukocyte Esterase (NEGATIVE) Urine WBC (Auto) (0-5) /HPF Urine RBC (Auto) (0-2) /HPF U Epithel Cells (Auto) (FEW) /HPF Urine Bacteria (Auto) (NEGATIVE) /HPF Urine Mucus (Auto) (NEGATIVE) /HPF Urine Culture Reflexed (NO) Urine Glucose (NEGATIVE) mg/dL Urine Opiates Level (NEGATIVE) Ur Methadone (NEGATIVE) Urine Barbiturates (NEGATIVE) Ur Phencyclidine (PCP) (NEGATIVE) Urine Amphetamine (NEGATIVE) U Benzodiazepine Level (NEGATIVE) Urine Cocaine (NEGATIVE) Urine Marijuana (THC) (NEGATIVE) - Progress Progress: improved, re-examined Progress Note: 03/23/19 11:08 pt reexamined. he states his nausea is better but still with some pain. i have seen this pt before and he has had several negative ct scans of his abd/pelvis in the past. his wbc is elevated due to vomiting and i am confident it is not from an acute intraabdominal process. his abdomen is soft on reexamination. there is mild generalized tenderness but no rebound or guarding. pt admits to using sig other's opiates. 03/23/19 11:41 pt states he is much more comfortable. nausea gone and pain improved to a point he wants to be discharged and rest at home. sig other agrees. 03/23/19 11:44 Counseled pt/family regarding: lab results, diagnosis, need for follow-up - Departure Departure Disposition: Home Clinical Impression: Pain associated with hyperemesis, Chronic abdominal pain Condition: Stable Critical Care Time: No Referrals: DOCTOR,NO FAMILY [Primary Care Provider] - Additional Instructions: drink plenty of clear liquids. since your health insurance now active, call primary doctor for further management. Prescriptions: Promethazine HCl 25 mg [Phenergan 25 mg] 25 mg PO Q8H PRN PRN #10 tablet MDD 3 PRN Reason: Vomiting
[2019-03-23] MEDS ORDERED: Sodium Chloride 0.9% 1000 ML 1,000 ML IV STA ×2 (08:05→10:03)
[2019-03-23] MEDS ORDERED: Phenergan 25 MG INJ IM ONE (08:05)
[2019-03-23] MEDS ORDERED: Sodium Chloride 0.9% 1000 ML 1,000 ML ONE ×2 (08:13→09:38)
[2019-03-23] MEDS ORDERED: Phenergan 25 MG INJ ONE (08:13)
[2019-03-23 08:34] LABS: BASOPHIL % 0.1 % (0.0-0.4); Basophil (Absolute #) 0.02 (0-0.4); Eosinophil % 0.1 % (0.00-5.0); Eosinophil (Absolute #) 0.01 (0-0.5); Granulocyte Absolute (ANC) 14.81 (1.4-6.9); Granulocytes % 86.9 % (36.0-66.0); Hematocrit 43.8 % (42-50); Hemoglobin 15.2 gm/dl (12.5-18.0); Lymphocyte (Absolute #) 1.73 (1.0-4.6); Lymphocytes % 10.1 % (24.0-44.0); Mean Cell Volume 85.4 fl (78-100); Mean Corpuscular Hemoglobin 29.6 pg (26-32); Mean Corpuscular Hgb Concent. 34.7 g/dl (32-36); Monocyte (Absolute #) 0.48 (0.0-1.3); Monocytes % 2.8 % (0.0-12.0); Platelet Count 362 K/mm3 (150-450); Red Blood Count 5.13 M/mm3 (4.1-5.6); Red Cell Distribution Width 13.3 % (11.5-14.0); White Blood Count 17.1 K/mm3 (4.0-10.5)
[2019-03-23 08:50] LABS: ALKALINE PHOSPHATASE 101 U/L (38-126); AMYLASE 54 U/L (30-110); ANION GAP 20.2 MEQ/L (5-15); BLOOD UREA NITROGEN 11 mg/dL (9-20); CHLORIDE 104 mmol/L (98-107); Calcium 10.4 mg/dL (8.4-10.2); Carbon Dioxide 23 mmol/L (22-30); Creatinine 1 0.53 mg/dL (0.66-1.25); Glucose 131 mg/dL (74-106); LIPASE 44 U/L (23-300); Potassium 4.1 mmol/L (3.5-5.1); SGOT/AST 30 U/L (17-59); SGPT/ALT 26 U/L (0-50); SODIUM 142 mmol/L (137-145); Total Protein 9.1 g/dL (6.3-8.2)
[2019-03-23 09:52] LABS: Appearance CLEAR (CLEAR); Bilirubin NEGATIVE (NEGATIVE); Blood NEGATIVE Ery/ul (0-5); Glucose NEGATIVE (NEGATIVE); Ketones SMALL (NEGATIVE); Leukocyte Esterase NEGATIVE (NEGATIVE); Mucus SLIGHT /HPF (NEGATIVE); Nitrite NEGATIVE (NEGATIVE); Protein,Urine Dip 30 (Negative); Specific Gravity 1.018 (1.005-1.025); Urobilinogen NEGATIVE mg/dL (0-1); WBC 0-2 /HPF (0-5)
[2019-03-23 10:03] LABS: Amphetamine,Urine NEGATIVE (NEGATIVE); Barbiturate,Urine NEGATIVE (NEGATIVE); Benzodiazepine,Urine NEGATIVE (NEGATIVE); Cocaine,Urine NEGATIVE (NEGATIVE); Methadone,Urine NEGATIVE (NEGATIVE); Opiate,Urine POSITIVE (NEGATIVE); PCP,Urine NEGATIVE (NEGATIVE); THC,Urine POSITIVE (NEGATIVE)
[2019-03-23] MEDS ORDERED: Zofran 4 MG/2 ML VIAL IV ONE (10:39)
[2019-03-23] MEDS ORDERED: Zofran 4 MG/2 ML VIAL ONE (10:39)
[2019-03-23 11:00] VITALS: O2SAT 98
[2019-03-23] MEDS ORDERED: Hydromorphone 1 mg/ml Ampule IV ONE (11:07)
[2019-03-23] MEDS ORDERED: Hydromorphone 1 mg/ml Ampule ONE (11:17)
[2019-03-23 11:45] VITALS: BP 164/98; PULSE 70
== END 2019-03-23 12:05 | disposition home or self-care (01) ==
LOC: ED 07:53
DX: R11.2 Nausea with vomiting, unspecified (principal); R10.84 Generalized abdominal pain; R53.1 Weakness
CPT/HCPCS: 36415; 80053; 80307; 81001; 82150; 83690; 85025; 96360; 96361; 96372; 96374; 96375; 99284; J1170; J2405; J2550

== ENCOUNTER 2020-03-27 20:20 | Emergency (ER) | payer BC, OTHER ==
[2020-03-27] MEDS ORDERED: Cleocin Phosphate IV 600 MG/4 ML IM STA (20:38)
[2020-03-27] MEDS ORDERED: TORAdol 30 mg Injection IM ONE (20:43)
--- NOTE | 2020-03-27 20:43 | ERPHSYRPT ---
- History of Present Illness Time Seen by Provider: 03/27/20 20:40 Source: patient Physician History: Patient is a 39-year-old male presents to our ED with pain to the proximal left anterior carrera. Patient believes he was bitten by a bug. Patient states the area is tender and warm. No trauma. No fever. No nausea or vomiting. No diaphoresis. No calf pain. Homans sign at the involved extremity is negative. Symptoms have been progressive. Symptoms are moderate in intensity. Patient ad vised staff that he was bitten by a bug approximately 2 weeks ago at the same location. Patient states the area became bruised however his symptoms gradually improved and resolved. He also has a small dry patch of skin just anterior to the axillary fold. This area is otherwise asymptomatic. Method of Injury: other (No injury. Symptomology likely due to an insect bite.) Occurred: yesterday Quality: constant Severity of Pain-Max: moderate Severity of Pain-Current: mild Lower Extremities Pain: leg: left Modifying Factors: Improves With: other (Pain worse with palpation.) Associated Symptoms: none, No dizzy, No fainted, No seizure, No snapping sensation Allergies/Adverse Reactions: No Known Drug Allergies Allergy (Verified 03/27/20 20:30) Hx Tetanus, Diphtheria Vaccination/Date Given: Yes Hx Influenza Vaccination/Date Given: No Hx Pneumococcal Vaccination/Date Given: No - Review of Systems Constitutional: No Symptoms, No Fever, No Chills Eyes: No Symptoms Ears, Nose, & Throat: No Symptoms Respiratory: No Symptoms, No Cough, No Dyspnea Cardiac: No Symptoms, No Chest Pain, No Edema, No Syncope Abdominal/Gastrointestinal: No Symptoms, No Abdominal Pain, No Nausea, No Vomiting, No Diarrhea Genitourinary Symptoms: No Symptoms, No Dysuria Musculoskeletal: No Symptoms, No Back Pain, No Neck Pain Skin: No Symptoms, No Rash Neurological: No Symptoms, No Dizziness, No Focal Weakness, No Sensory Changes Psychological: No Symptoms Endocrine: No Symptoms Hematologic/Lymphatic: No Symptoms Immunological/Allergic: No Symptoms All Other Systems: Reviewed and Negative - Past Medical History Pertinent Past Medical History: No Neurological History: No Pertinent History ENT History: No Pertinent History Cardiac History: No Pertinent History Respiratory History: No Pertinent History Endocrine Medical History: No Pertinent History Musculoskeletal History: No Pertinent History GI Medical History: No Pertinent History History: No Pertinent History Psycho-Social History: No Pertinent History Male Reproductive Disorders: No Pertinent History - Past Surgical History Past Surgical History: Yes Neuro Surgical History: No Pertinent History Cardiac: No Pertinent History Respiratory: No Pertinent History Gastrointestinal: Appendectomy Genitourinary: No Pertinent History Musculoskeletal: Orthopedic Surgery Male Surgical History: No Pertinent History Other Surgical History: ankle surgery - Social History Smoking Status: Never smoker Exposure to second hand smoke: Yes Drug Use: marijuana Patient Lives Alone: No - Nursing Vital Signs Nursing Vital Signs: Initial Vital Signs Temperature 98.6 F 03/27/20 20:31 Pulse Rate 100 H 03/27/20 20:31 Respiratory Rate 16 03/27/20 20:31 Blood Pressure 140/101 03/27/20 20:31 O2 Sat by Pulse Oximetry 98 03/27/20 20:31 Pain Scale Pain Intensity 8 - Physical Exam General Appearance: no apparent distress, alert Eyes, Ears, Nose, Throat Exam: moist mucous membranes Neck Exam: normal inspection, non-tender, supple Cardiovascular/Respiratory Exam: chest non-tender, normal breath sounds, regular rate/rhythm, no respiratory distress Gastrointestinal/Abdominal Exam: non-tender, guarding Back Exam: normal inspection, No vertebral tenderness Hips Exam: bilateral: non-tender, normal inspection, normal range of motion, no evidence of injury Legs Exam: right leg: non-tender, normal inspection, normal range of motion, no evidence of injury, left leg: pain, soft tissue tenderness, swelling Knees Exam: bilateral knee: non-tender, normal inspection, normal range of motion, no evidence of injury Ankle Exam: bilateral ankle: non-tender, normal inspection, normal range of motion, no evidence of injury Foot Exam: bilateral foot: non-tender, normal inspection, normal range of motion, no evidence of injury Neuro/Tendon Exam: normal sensation, normal motor functions Mental Status Exam: alert, oriented x 3, cooperative Skin Exam: normal color, warm, dry, other (There is a dry nonspecific patch of skin anterior to the left axilla. No cellulitis. No open or draining lesions. No axillary lymphadenopathy. Left upper extremity is neurovascular intact distally.) SpO2 Interpretation: normal SpO2: 98 O2 Delivery: Room Air - Course Nursing assessment & vital signs reviewed: Yes - Radiology Exams Other X-ray Interpretation: Interpreted by me (X-ray left leg shows hardware from previous ankle fracture. No acute fractures or dislocations. No subcutaneous emphysema.) Ordered Tests: Active Orders 24 hr Category Date Time Status Nursing [Miscellaneous Nursing Order] ROUTINE Care 03/27/20 21:16 Ordered LOWER LEG Stat Exams 03/27/20 20:40 Taken Medication Summary Discontinued Medications Generic Name Dose Route Start Last Admin Trade Name Elda PRN Reason Stop Dose Admin Clindamycin Phosphate 600 mg 03/27/20 20:38 03/27/20 20:47 Cleocin Phosphate Iv 600 Mg/4 Ml IM 03/27/20 20:39 600 mg ONCE STA Administration Clindamycin Phosphate Confirm 03/27/20 20:44 Cleocin Phosphate Iv 600 Mg/4 Ml Administered 03/27/20 20:45 Dose 600 mg .ROUTE .STK-MED ONE Ketorolac Tromethamine 60 mg 03/27/20 20:43 03/27/20 20:58 Toradol 30 Mg Injection IM 03/27/20 20:44 60 mg STAT ONE Administration Ketorolac Tromethamine Confirm 03/27/20 20:57 Toradol 30 Mg Injection Administered 03/27/20 20:58 Dose 60 mg .ROUTE .STK-MED ONE - Progress Progress: improved Progress Note: 03/27/20 21:20 Patient reassessed. Pain improved. X-rays negative for fracture or dislocation. No subcutaneous gas or emphysema. Patient given a dose of IM clindamycin. Patient also received tetanus update and Toradol for pain control. Crutches were given for comfort. Counseled pt/family regarding: diagnosis, need for follow-up, rad results - Departure Departure Disposition: Home, Extended Care Facility Clinical Impression: Cellulitis, leg Condition: Stable Critical Care Time: No Referrals: DOCTOR,NO FAMILY [NON-STAFF PHY W/O PRIVILEGES] - Additional Instructions: Discharge/Care Plan ABBIEYOMI CHRISTIANSON was seen on 03/27/20 in the Emergency Room. The patient was counseled regarding Diagnosis,Lab results, Imaging studies, need for follow up and when to return to the Emergency Room. Prescriptions given: Discharge Note I have spoken with the patient and/or caregivers. I have explained the patient's condition, diagnosis and treatment plan based on the information available to me at this time. I have answered the patient's and/or caregiver's questions and addressed any concerns. The patient and/or caregivers have as good understanding of the patient's diagnosis, condition and treatment plan as can be expected at this point. The vital signs have been stable. The patient's condition is stable and appropriate for discharge from the emergency department. The patient will pursue further outpatient evaluation with the primary care physician or other designated or consulting physician as outlined in the discharge instructions. The patient and/or caregivers are agreeable to this plan of care and follow-up instructions have been explained in detail. The patient and/or caregivers have received these instruction. The patient/and or caregivers are aware that any significant change in condition or worsening of symptoms should prompt an immediate return to this or the closest emergency department or call 911. Prescriptions: Clindamycin HCl 150 mg [Cleocin 150 mg Capsule] 2 cap PO QID #56 capsule Ketorolac Tromethamine [Toradol] 10 mg PO TID 5 Days #15 tablet
[2020-03-27] MEDS ORDERED: Cleocin Phosphate IV 600 MG/4 ML ONE (20:44)
[2020-03-27] MEDS ORDERED: TORAdol 30 mg Injection ONE (20:57)
[2020-03-27 21:31] VITALS: BP 120/78; PULSE 86
[2020-03-27 21:34] VITALS: O2SAT 98
--- NOTE | 2020-03-28 08:44 | XRAY ---
Indication: Bite injury one week ago. Comparison: None 2 view left lower leg demonstrates old distal tibia/fibula fractures with intact orthopedic hardware, moderate talotibial degenerative arthropathy, and tiny posterior heel spur. No other bony, articular, or soft tissue abnormalities.
== END 2020-03-27 21:47 | disposition home or self-care (01) ==
LOC: ED 20:20
DX: L03.116 Cellulitis of left lower limb (principal)
CPT/HCPCS: 73590; 96372; 99284; J1885

== ENCOUNTER 2020-04-23 21:26 | Emergency (ER) | payer BC, OTHER ==
[2020-04-23] MEDS ORDERED: TYLENOL 325 MG PO ONE (21:39)
[2020-04-23] MEDS ORDERED: Sodium Chloride 0.9% 1000 ML 1,000 ML IV STA (21:39)
[2020-04-23] MEDS ORDERED: Zofran 4 MG/2 ML VIAL IV ONE (21:56)
[2020-04-23 21:57] LABS: Absolute Neutrophil Ct (ANC) 10.71 (1.4-6.9); BASOPHIL % 0.2 % (0.0-0.4); Basophil (Absolute #) 0.03 (0-0.4); Eosinophil % 1.1 % (0.00-5.0); Eosinophil (Absolute #) 0.16 (0-0.5); Hematocrit 45.7 % (42-50); Hemoglobin 15.8 gm/dl (12.5-18.0); Lymphocyte (Absolute #) 3.28 (1.0-4.6); Lymphocytes % 21.9 % (24.0-44.0); Mean Cell Volume 83.7 fl (78-100); Mean Corpuscular Hemoglobin 28.9 pg (26-32); Mean Corpuscular Hgb Concent. 34.6 g/dl (32-36); Monocytes % 5.3 % (0.0-12.0); Neutrophil % 71.5 % (36.0-66.0); Platelet Count 411 K/mm3 (150-450); Red Blood Count 5.46 M/mm3 (4.1-5.6); Red Cell Distribution Width 14.1 % (11.5-14.0)
[2020-04-23] MEDS ORDERED: Zofran 4 MG/2 ML VIAL ONE (21:57)
[2020-04-23 22:10] LABS: ALBUMIN 4.8 g/dL (3.5-5.0); ALKALINE PHOSPHATASE 104 U/L (38-126); ANION GAP 14.9 MEQ/L (5-15); BLOOD UREA NITROGEN 6 mg/dL (9-20); CHLORIDE 107 mmol/L (98-107); Calcium 9.8 mg/dL (8.4-10.2); Carbon Dioxide 21 mmol/L (22-30); Creatinine 1 0.42 mg/dL (0.66-1.25); Glucose 102 mg/dL (74-106); LIPASE 48 U/L (23-300); Potassium 3.4 mmol/L (3.5-5.1); SGOT/AST 22 U/L (17-59); SGPT/ALT 31 U/L (0-50); SODIUM 140 mmol/L (137-145)
[2020-04-23 22:40] LABS: Appearance CLEAR (CLEAR); Bilirubin NEGATIVE (NEGATIVE); Blood NEGATIVE Ery/ul (0-5); Glucose NEGATIVE (NEGATIVE); Ketones NEGATIVE (NEGATIVE); Leukocyte Esterase NEGATIVE (NEGATIVE); Mucus SLIGHT /HPF (NEGATIVE); Nitrite NEGATIVE (NEGATIVE); Protein,Urine Dip NEGATIVE (Negative); Urobilinogen NEGATIVE mg/dL (0-1)
[2020-04-23 22:41] VITALS: BP 175/93; PULSE 66; O2SAT 97
[2020-04-23 22:54] LABS: Amphetamine,Urine NEGATIVE (NEGATIVE); Barbiturate,Urine NEGATIVE (NEGATIVE); Benzodiazepine,Urine NEGATIVE (NEGATIVE); Cocaine,Urine NEGATIVE (NEGATIVE); Methadone,Urine NEGATIVE (NEGATIVE); Opiate,Urine NEGATIVE (NEGATIVE); PCP,Urine NEGATIVE (NEGATIVE); THC,Urine POSITIVE (NEGATIVE)
--- NOTE | 2020-04-23 23:12 | ERPHSYRPT ---
- History of Present Illness Time Seen by Provider: 04/23/20 21:40 Historian: patient Exam Limitations: no limitations Patient Subjective Stated Complaint: pt states, "I've been vomiting for 2 days" Triage Nursing Assessment: pt c/o vomiting and diarrhea x2 days, mid gastric abd pain. Pt has only had sips of water for 2 days. Physician History: Patient is a 39-year-old male presents to our ED with mid abdominal pain that started approximately 2 days ago. Pain associated with nausea vomiting and diarrhea. Patient states he smokes marijuana regularly. However he last smoked marijuana is ago. Patient abdominal pain described as an ache. No radiation. No specific worsening or improving factors. No trauma. No fever. No rash. Symptoms are moderate in intensity. Patient voices no other complaints at this time. Timing/Duration: day(s) (2 days) Activities at Onset: none Quality: aching Abdominal Pain Onset Location: periumbilical Pain Radiation: no radiation Severity of Pain-Max: moderate Severity of Pain-Current: mild Modifying Factors: Improves With: nothing Associated Symptoms: diarrhea, nausea, vomiting, No chest pain, No fever/chills, No testicular pain, No weakness Previous symptoms: same symptoms as today Allergies/Adverse Reactions: No Known Drug Allergies Allergy (Verified 04/23/20 21:43) Hx Tetanus, Diphtheria Vaccination/Date Given: Yes Hx Influenza Vaccination/Date Given: No Hx Pneumococcal Vaccination/Date Given: No Immunizations Up to Date: Yes Travel Risk - International Travel Have you traveled outside of the country in past 3 weeks: No - Coronavirus Screening Are you exhibiting any of the following symptoms?: Yes Close contact with a COVID-19 positive Pt in past 14-21 Days: No - Review of Systems Constitutional: No Symptoms, No Fever, No Chills Eyes: No Symptoms Ears, Nose, & Throat: No Symptoms Respiratory: No Symptoms, No Cough, No Dyspnea Cardiac: No Symptoms, No Chest Pain, No Edema, No Syncope Abdominal/Gastrointestinal: No Symptoms, No Abdominal Pain, No Nausea, No Vomiting, No Diarrhea Genitourinary Symptoms: No Symptoms, No Dysuria Musculoskeletal: No Symptoms, No Back Pain, No Neck Pain Skin: No Symptoms, No Rash Neurological: No Symptoms, No Dizziness, No Focal Weakness, No Sensory Changes Psychological: No Symptoms Endocrine: No Symptoms Hematologic/Lymphatic: No Symptoms Immunological/Allergic: No Symptoms All Other Systems: Reviewed and Negative - Past Medical History Pertinent Past Medical History: No Neurological History: No Pertinent History ENT History: No Pertinent History Cardiac History: No Pertinent History Respiratory History: No Pertinent History Endocrine Medical History: No Pertinent History Musculoskeletal History: Fractures GI Medical History: No Pertinent History History: No Pertinent History Psycho-Social History: No Pertinent History Male Reproductive Disorders: No Pertinent History Other Medical History: fx lt lower leg - Past Surgical History Past Surgical History: Yes Neuro Surgical History: No Pertinent History Cardiac: No Pertinent History Respiratory: No Pertinent History Gastrointestinal: Appendectomy Genitourinary: No Pertinent History Musculoskeletal: Orthopedic Surgery Male Surgical History: No Pertinent History Other Surgical History: ankle surgery - Social History Smoking Status: Former smoker Exposure to second hand smoke: No Drug Use: marijuana Patient Lives Alone: Yes - Nursing Vital Signs Nursing Vital Signs: Initial Vital Signs Temperature 97.7 F 04/23/20 21:33 Pulse Rate 77 04/23/20 21:33 Respiratory Rate 18 04/23/20 21:33 Blood Pressure 180/129 04/23/20 21:33 O2 Sat by Pulse Oximetry 100 04/23/20 21:33 Pain Scale Pain Intensity 5 - Physical Exam General Appearance: mild distress, alert, other (Patient sitting up in bed. Patient is nauseous. Patient complaining of periumbilical pain.) Eye Exam: PERRL/EOMI, eyes nml inspection Ears, Nose, Throat Exam: normal ENT inspection, pharynx normal, moist mucous membranes Neck Exam: normal inspection, non-tender, supple, full range of motion Respiratory Exam: normal breath sounds, lungs clear, No respiratory distress Cardiovascular Exam: regular rate/rhythm, normal heart sounds Gastrointestinal/Abdomen Exam: soft, No tenderness, No mass Back Exam: normal inspection, normal range of motion, No CVA tenderness, No vertebral tenderness Extremity Exam: normal inspection, normal range of motion, pelvis stable Neurologic Exam: alert, oriented x 3, cooperative, normal mood/affect, nml cerebellar function, sensation nml, No motor deficits Skin Exam: normal color, warm, dry SpO2 Interpretation: normal SpO2: 97 O2 Delivery: Room Air - Course Nursing assessment & vital signs reviewed: Yes EKG Interpreted by Me: RATE (70), Sinus Rhythm, NORMAL AXIS, prolonged QT interval (QT 468) - CT Exams Abdomen/Pelvis CT Interpretation: Tele-radiologist Report (Prominent fluid in the small bowel may reflect enteritis.) Ordered Tests: Active Orders 24 hr Category Date Time Status EKG-ER Only STAT Care 04/23/20 21:39 Completed IV Insertion STAT Care 04/23/20 21:39 Completed ABDOMEN AND PELVIS W CONTRAST [CT] Stat Exams 04/23/20 21:41 Taken CBC W DIFF Stat Lab 04/23/20 21:45 Completed CMP Stat Lab 04/23/20 21:45 Completed LIPASE Stat Lab 04/23/20 21:45 Completed TROPONIN Q3H Lab 04/23/20 21:45 Completed TROPONIN Q3H Lab 04/24/20 00:45 Ordered TROPONIN Q3H Lab 04/24/20 03:45 Ordered TROPONIN Q3H Lab 04/24/20 06:45 Ordered TROPONIN Q3H Lab 04/24/20 09:45 Ordered UA W/RFX UR CULTURE Stat Lab 04/23/20 22:25 Completed Urine Triage Profile Stat Lab 04/23/20 22:25 Completed Medication Summary Discontinued Medications Generic Name Dose Route Start Last Admin Trade Name Freq PRN Reason Stop Dose Admin Acetaminophen 975 mg 04/23/20 21:39 04/23/20 22:42 Tylenol 325 Mg PO 04/23/20 21:40 975 mg STAT ONE Administration Sodium Chloride 1,000 mls @ 999 mls/hr 04/23/20 21:39 04/23/20 23:18 Sodium Chloride 0.9% 1000 Ml IV 04/23/20 22:39 Infused .Q1H1M STA Infusion Ondansetron HCl 4 mg 04/23/20 21:56 04/23/20 21:59 Zofran 4 Mg/2 Ml Vial IV 04/23/20 21:57 4 mg STAT ONE Administration Ondansetron HCl Confirm 04/23/20 21:57 Zofran 4 Mg/2 Ml Vial Administered 04/23/20 21:58 Dose 4 mg .ROUTE .STK-MED ONE Lab/Rad Data: Laboratory Result Diagrams 04/23/20 21:45 04/23/20 21:45 Laboratory Results 04/23/20 04/23/20 04/23/20 Range/Units 22:25 22:25 21:45 WBC (4.0-10.5) K/mm3 RBC (4.1-5.6) M/mm3 Hgb (12.5-18.0) gm/dl Hct (42-50) % MCV (78-100) fl MCH (26-32) pg MCHC (32-36) g/dl RDW (11.5-14.0) % Plt Count (150-450) K/mm3 MPV (7.5-11.0) fl Gran % (36.0-66.0) % Eos # (Auto) (0-0.5) Absolute Lymphs (auto) (1.0-4.6) Absolute Monos (auto) (0.0-1.3) Lymphocytes % (24.0-44.0) % Monocytes % (0.0-12.0) % Eosinophils % (0.00-5.0) % Basophils % (0.0-0.4) % Absolute Granulocytes (1.4-6.9) Basophils # (0-0.4) Sodium (137-145) mmol/L Potassium (3.5-5.1) mmol/L Chloride (98-107) mmol/L Carbon Dioxide (22-30) mmol/L Anion Gap (5-15) MEQ/L BUN (9-20) mg/dL Creatinine (0.66-1.25) mg/dL Estimated GFR ML/MIN Glucose (74-106) mg/dL Calcium (8.4-10.2) mg/dL Total Bilirubin (0.2-1.3) mg/dL AST (17-59) U/L ALT (0-50) U/L Alkaline Phosphatase (38-126) U/L Troponin I < 0.012 (0.000-0.034) ng/mL Serum Total Protein (6.3-8.2) g/dL Albumin (3.5-5.0) g/dL Lipase (23-300) U/L Urine Color YELLOW (YELLOW) Urine Appearance CLEAR (CLEAR) Urine pH 8.0 (5-6) Ur Specific [place] 1.030 (1.005-1.025) Urine Protein NEGATIVE (Negative) Urine Ketones NEGATIVE (NEGATIVE) Urine Blood NEGATIVE (0-5) Leandro/ul Urine Nitrite NEGATIVE (NEGATIVE) Urine Bilirubin NEGATIVE (NEGATIVE) Urine Urobilinogen NEGATIVE (0-1) mg/dL Ur Leukocyte Esterase NEGATIVE (NEGATIVE) Urine WBC (Auto) NONE (0-5) /HPF Urine RBC (Auto) NONE (0-2) /HPF U Epithel Cells (Auto) NONE (FEW) /HPF Urine Bacteria (Auto) NONE (NEGATIVE) /HPF Urine Mucus (Auto) SLIGHT (NEGATIVE) /HPF Urine Culture Reflexed NO (NO) Urine Glucose NEGATIVE (NEGATIVE) mg/dL Urine Opiates Level NEGATIVE (NEGATIVE) Ur Methadone NEGATIVE (NEGATIVE) Urine Barbiturates NEGATIVE (NEGATIVE) Ur Phencyclidine (PCP) NEGATIVE (NEGATIVE) Urine Amphetamine NEGATIVE (NEGATIVE) U Benzodiazepine Level NEGATIVE (NEGATIVE) Urine Cocaine NEGATIVE (NEGATIVE) Urine Marijuana (THC) POSITIVE (NEGATIVE) 04/23/20 04/23/20 Range/Units 21:45 21:45 WBC 15.0 H (4.0-10.5) K/mm3 RBC 5.46 (4.1-5.6) M/mm3 Hgb 15.8 (12.5-18.0) gm/dl Hct 45.7 (42-50) % MCV 83.7 (78-100) fl MCH 28.9 (26-32) pg MCHC 34.6 (32-36) g/dl RDW 14.1 H (11.5-14.0) % Plt Count 411 (150-450) K/mm3 MPV 11.0 (7.5-11.0) fl Gran % 71.5 H (36.0-66.0) % Eos # (Auto) 0.16 (0-0.5) Absolute Lymphs (auto) 3.28 (1.0-4.6) Absolute Monos (auto) 0.80 (0.0-1.3) Lymphocytes % 21.9 L (24.0-44.0) % Monocytes % 5.3 (0.0-12.0) % Eosinophils % 1.1 (0.00-5.0) % Basophils % 0.2 (0.0-0.4) % Absolute Granulocytes 10.71 H (1.4-6.9) Basophils # 0.03 (0-0.4) Sodium 140 (137-145) mmol/L Potassium 3.4 L (3.5-5.1) mmol/L Chloride 107 (98-107) mmol/L Carbon Dioxide 21 L (22-30) mmol/L Anion Gap 14.9 (5-15) MEQ/L BUN 6 L (9-20) mg/dL Creatinine 0.42 L (0.66-1.25) mg/dL Estimated GFR > 60.0 ML/MIN Glucose 102 (74-106) mg/dL Calcium 9.8 (8.4-10.2) mg/dL Total Bilirubin 0.70 (0.2-1.3) mg/dL AST 22 (17-59) U/L ALT 31 (0-50) U/L Alkaline Phosphatase 104 (38-126) U/L Troponin I (0.000-0.034) ng/mL Serum Total Protein 9.0 H (6.3-8.2) g/dL Albumin 4.8 (3.5-5.0) g/dL Lipase 48 (23-300) U/L Urine Color (YELLOW) Urine Appearance (CLEAR) Urine pH (5-6) Ur Specific [place] (1.005-1.025) Urine Protein (Negative) Urine Ketones (NEGATIVE) Urine Blood (0-5) Leandro/ul Urine Nitrite (NEGATIVE) Urine Bilirubin (NEGATIVE) Urine Urobilinogen (0-1) mg/dL Ur Leukocyte Esterase (NEGATIVE) Urine WBC (Auto) (0-5) /HPF Urine RBC (Auto) (0-2) /HPF U Epithel Cells (Auto) (FEW) /HPF Urine Bacteria (Auto) (NEGATIVE) /HPF Urine Mucus (Auto) (NEGATIVE) /HPF Urine Culture Reflexed (NO) Urine Glucose (NEGATIVE) mg/dL Urine Opiates Level (NEGATIVE) Ur Methadone (NEGATIVE) Urine Barbiturates (NEGATIVE) Ur Phencyclidine (PCP) (NEGATIVE) Urine Amphetamine (NEGATIVE) U Benzodiazepine Level (NEGATIVE) Urine Cocaine (NEGATIVE) Urine Marijuana (THC) (NEGATIVE) - Progress Progress: improved Progress Note: 04/23/20 23:45 Reassessed. Symptoms improved. Nausea improved. Patient tolerated p.o. Patient states he is ready for discharge. A prescription for Zofran was forwarded to patient's pharmacy. Patient advised clear liquids the next 2 to 3 days and advance diet as tolerated. Patient agrees to follow-up with his primary care doctor within 48 hours for reevaluation. Counseled pt/family regarding: lab results, diagnosis, need for follow-up, rad results - Departure Departure Disposition: Home Clinical Impression: Enteritis, Leukocytosis, Marijuana use Condition: Stable Critical Care Time: No Referrals: OSMIN LLAMAS PA [Primary Care Provider] - Instructions: Nausea and Vomiting, Adult (DC) Additional Instructions: Discharge/Care Plan YOMI LEIVA was seen on 04/23/20 in the Emergency Room. The patient was counseled regarding Diagnosis,Lab results, Imaging studies, need for follow up and when to return to the Emergency Room. Prescriptions given: Discharge Note I have spoken with the patient and/or caregivers. I have explained the patient's condition, diagnosis and treatment plan based on the information available to me at this time. I have answered the patient's and/or caregiver's questions and addressed any concerns. The patient and/or caregivers have as good understanding of the patient's diagnosis, condition and treatment plan as can be expected at this point. The vital signs have been stable. The patient's condition is stable and appropriate for discharge from the emergency department. The patient will pursue further outpatient evaluation with the primary care physician or other designated or consulting physician as outlined in the discharge instructions. The patient and/or caregivers are agreeable to this plan of care and follow-up instructions have been explained in detail. The patient and/or caregivers have received these instruction. The patient/and or caregivers are aware that any significant change in condition or worsening of symptoms should prompt an immediate return to this or the closest emergency department or call 911. Prescriptions: Ondansetron ODT 4 MG [Zofran Odt 4 mg] 4 mg PO Q6H PRN PRN #10 tab.rapdis PRN Reason: Vomiting
--- NOTE | 2020-04-24 08:47 | XRAY ---
Indication: Abdomen pain, nausea, vomiting, diarrhea 2 days. Multiple contiguous images obtained through the abdomen and pelvis using 80 cc Isovue 370 contrast only. Comparison: July 11, 2018. Lung bases remain clear. Heart is not enlarged. Noncontrasted stomach and bowel loops nonobstructed. Several jejunal bowel loops are minimally fluid distended, possible enteritis in the right clinical setting. Again previous appendectomy. Minimal sigmoid diverticulosis without diverticulitis. No free fluid/air. Gallbladder contracted without gallstones or biliary distention. Spleen remains enlarged measuring 13 cm. 6 mm right mid renal cortical cyst not well seen on previous noncontrasted exam. Remaining liver, gallbladder, pancreas, spleen, adrenal glands, kidneys, ureters, bladder, and aorta appear unremarkable. No pathologic retroperitoneal lymphadenopathy. Osseous structures intact again with chronic appearing L3 anterior wedging deformity and mild dextroscoliosis centered at L1. Impression: 1. Minimal fluid distended jejunum. Rule out enteritis. 2. Incidental tiny right renal cyst. 3. Again sigmoid diverticulosis, splenomegaly, and chronic bony findings. Comment: Preliminary interpretation was made by [facility]. No critical discrepancy.
== END 2020-04-23 23:58 | disposition home or self-care (01) ==
LOC: ED 21:26
DX: K52.9 Noninfective gastroenteritis and colitis, unspecified (principal); R11.2 Nausea with vomiting, unspecified; R10.9 Unspecified abdominal pain; F12.90 Cannabis use, unspecified, uncomplicated; D72.829 Elevated white blood cell count, unspecified
CPT/HCPCS: 36000; 36415; 74177; 80053; 80307; 81001; 83690; 83735; 84484; 85025; 93005; 96360; 96374; 99284; J2405; A9270-GY

== ENCOUNTER 2020-11-05 19:55 | Emergency (ER) | payer BC, OTHER ==
[2020-11-05] MEDS ORDERED: Sodium Chloride 0.9% 1000 ML 1,000 ML IV STA (20:11)
[2020-11-05] MEDS ORDERED: Zofran 4 MG/2 ML VIAL IV ONE (20:16)
[2020-11-05] MEDS ORDERED: Zofran 4 MG/2 ML VIAL ONE (20:39)
[2020-11-05] MEDS ORDERED: Sodium Chloride 0.9% 1000 ML 1,000 ML ONE (20:40)
[2020-11-05 20:44] LABS: Absolute Neutrophil Ct (ANC) 7.82 (1.4-6.9); BASOPHIL % 0.2 % (0.0-0.4); Basophil (Absolute #) 0.02 (0-0.4); Eosinophil % 1.3 % (0.00-5.0); Eosinophil (Absolute #) 0.16 (0-0.5); Hematocrit 44.3 % (42-50); Hemoglobin 14.7 gm/dl (12.5-18.0); Lymphocyte (Absolute #) 2.99 (1.0-4.6); Lymphocytes % 24.2 % (24.0-44.0); Mean Cell Volume 84.2 fl (78-100); Mean Corpuscular Hemoglobin 27.9 pg (26-32); Mean Corpuscular Hgb Concent. 33.2 g/dl (32-36); Mean Platelet Volume 10.1 fl (7.5-11.0); Monocyte (Absolute #) 1.37 (0.0-1.3); Monocytes % 11.1 % (0.0-12.0); Neutrophil % 63.2 % (36.0-66.0); Platelet Count 498 K/mm3 (150-450); Red Blood Count 5.26 M/mm3 (4.1-5.6); Red Cell Distribution Width 13.3 % (11.5-14.0); White Blood Count 12.4 K/mm3 (4.0-10.5)
[2020-11-05 21:25] LABS: ALBUMIN 4.3 g/dL (3.5-5.0); ALKALINE PHOSPHATASE 86 U/L (38-126); ANION GAP 13.1 MEQ/L (5-15); BLOOD UREA NITROGEN 13 mg/dL (9-20); CHLORIDE 103 mmol/L (98-107); Carbon Dioxide 25 mmol/L (22-30); Creatinine 1 0.78 mg/dL (0.66-1.25); EST GLOMERULAR FILTRATION RATE > 60.0 ML/MIN; Glucose 99 mg/dL (74-106); LIPASE 91 U/L (23-300); Potassium 3.5 mmol/L (3.5-5.1); SGOT/AST 22 U/L (17-59); SGPT/ALT 17 U/L (0-50); SODIUM 138 mmol/L (137-145); Total Protein 8.1 g/dL (6.3-8.2)
[2020-11-05 21:37] LABS: Appearance CLEAR (CLEAR); Bilirubin NEGATIVE (NEGATIVE); Blood NEGATIVE Ery/ul (0-5); Glucose NEGATIVE (NEGATIVE); Ketones NEGATIVE (NEGATIVE); Leukocyte Esterase NEGATIVE (NEGATIVE); Mucus SLIGHT /HPF (NEGATIVE); Nitrite NEGATIVE (NEGATIVE); Protein,Urine Dip NEGATIVE (Negative); Urobilinogen 2 mg/dL (0-1)
--- NOTE | 2020-11-05 21:57 | ERPHSYRPT ---
- History of Present Illness Time Seen by Provider: 11/05/20 20:15 Source: patient Exam Limitations: no limitations Patient Subjective Stated Complaint: pt c/o vomiting since Thursday Triage Nursing Assessment: pt c/o vomiting since Thursday, headache and dizziness. Pt states, "I can't keep anything down, I've been vomiting off and on since Sat, I know I'm dehydrated". Lungs clear, abd soft with hypoactive bs, nontender. Heart tones reg. Physician History: Patient is a 40-year-old male presents to our ED vomiting and diarrhea that has been going on for approximately 2 days. Patient states he feels weak. Patient furnishing myalgias. Patient has a headache as well. No trauma. No fever. No chest pain or shortness of breath. Symptoms are mild to moderate in intensity. No specific worsening improving factors. Patient voices no other complaints or concerns at this time. Timing/Duration: day(s) (2 days) Severity: moderate Modifying Factors: Improves With: nothing Associated Symptoms: No shortness of breath, No diaphoresis, No cough, No chills, No fever, No headaches, No loss of appetite, No malaise, No syncope Allergies/Adverse Reactions: No Known Drug Allergies Allergy (Verified 11/05/20 20:12) Hx Tetanus, Diphtheria Vaccination/Date Given: No Hx Influenza Vaccination/Date Given: No Hx Pneumococcal Vaccination/Date Given: No Immunizations Up to Date: Yes Travel Risk - International Travel Have you traveled outside of the country in past 3 weeks: No - Coronavirus Screening Are you exhibiting any of the following symptoms?: Yes Symptoms: Vomiting/Diarrhea, Headaches/Body Aches/Fatigue Close contact with a COVID-19 positive Pt in past 14-21 Days: No - Review of Systems Constitutional: No Symptoms, No Fever, No Chills Eyes: No Symptoms Ears, Nose, & Throat: No Symptoms Respiratory: No Symptoms, No Cough, No Dyspnea Cardiac: No Symptoms, No Chest Pain, No Edema, No Syncope Abdominal/Gastrointestinal: No Symptoms, No Abdominal Pain, No Nausea, No Vomiting, No Diarrhea Genitourinary Symptoms: No Symptoms, No Dysuria Musculoskeletal: No Symptoms, No Back Pain, No Neck Pain Skin: No Symptoms, No Rash Neurological: No Symptoms, No Dizziness, No Focal Weakness, No Sensory Changes Psychological: No Symptoms Endocrine: No Symptoms Hematologic/Lymphatic: No Symptoms Immunological/Allergic: No Symptoms All Other Systems: Reviewed and Negative - Past Medical History Pertinent Past Medical History: No Neurological History: No Pertinent History ENT History: No Pertinent History Cardiac History: No Pertinent History Respiratory History: No Pertinent History Endocrine Medical History: No Pertinent History Musculoskeletal History: Fractures GI Medical History: No Pertinent History History: No Pertinent History Psycho-Social History: No Pertinent History Male Reproductive Disorders: No Pertinent History Other Medical History: fx lt and rt lower leg - Past Surgical History Past Surgical History: Yes Neuro Surgical History: No Pertinent History Cardiac: No Pertinent History Respiratory: No Pertinent History Gastrointestinal: Appendectomy Genitourinary: No Pertinent History Musculoskeletal: Orthopedic Surgery Male Surgical History: No Pertinent History Other Surgical History: bilat ankle surgery - Social History Smoking Status: Former smoker Exposure to second hand smoke: No Drug Use: none Patient Lives Alone: No - Nursing Vital Signs Nursing Vital Signs: Initial Vital Signs Temperature 98.9 F 11/05/20 20:11 Pulse Rate 79 11/05/20 20:11 Respiratory Rate 20 11/05/20 20:11 Blood Pressure 167/108 11/05/20 20:11 O2 Sat by Pulse Oximetry 100 11/05/20 20:11 Pain Scale Pain Intensity 6 - Physical Exam General Appearance: no apparent distress, alert Eye Exam: PERRL/EOMI, eyes nml inspection Ears, Nose, Throat Exam: normal ENT inspection, TMs normal, pharynx normal, moist mucous membranes Neck Exam: normal inspection, non-tender, supple, full range of motion Respiratory Exam: normal breath sounds, lungs clear, No respiratory distress Cardiovascular Exam: regular rate/rhythm, normal heart sounds, normal peripheral pulses Gastrointestinal/Abdomen Exam: soft, normal bowel sounds, No tenderness, No mass Back Exam: normal inspection, normal range of motion, No CVA tenderness, No vertebral tenderness Extremity Exam: normal inspection, normal range of motion, pelvis stable Neurologic Exam: alert, oriented x 3, cooperative, normal mood/affect, nml cerebellar function, nml station & gait, sensation nml, No motor deficits Skin Exam: normal color, warm, dry, No rash Lymphatic Exam: No adenopathy SpO2 Interpretation: normal SpO2: 99 O2 Delivery: Room Air - Course Nursing assessment & vital signs reviewed: Yes - CT Exams Abdomen/Pelvis CT Interpretation: Tele-radiologist Report (Increased fecal retention of the colon, diverticulitis chronic changes involving the spine and degenerative changes in the lumbar spine as described. Thickening of the wall of the gastric antrum on the coronal reformats. This may due to peptic ulcer disease or gastritis.) Ordered Tests: Active Orders 24 hr Category Date Time Status IV Insertion STAT Care 11/05/20 20:11 Active ABDOMEN AND PELVIS W CONTRAST [CT] Stat Exams 11/05/20 20:14 Ordered CBC W DIFF Stat Lab 11/05/20 20:35 Completed CMP Stat Lab 11/05/20 20:35 Completed LIPASE Stat Lab 11/05/20 20:35 Completed TROPONIN Q3H Lab 11/05/20 20:35 Completed TROPONIN Q3H Lab 11/05/20 23:15 Ordered TROPONIN Q3H Lab 11/06/20 02:15 Ordered TROPONIN Q3H Lab 11/06/20 05:15 Ordered TROPONIN Q3H Lab 11/06/20 08:15 Ordered UA W/RFX UR CULTURE Stat Lab 11/05/20 20:45 Completed Medication Summary Discontinued Medications Generic Name Dose Route Start Last Admin Trade Name Freq PRN Reason Stop Dose Admin Sodium Chloride 1,000 mls @ 999 mls/hr 11/05/20 20:11 11/05/20 21:41 Sodium Chloride 0.9% 1000 Ml IV 11/05/20 21:11 Infused .Q1H1M STA Infusion Sodium Chloride Confirm 11/05/20 20:40 Sodium Chloride 0.9% 1000 Ml Administered 11/05/20 20:41 Dose 1,000 mls @ ud .ROUTE .STK-MED ONE Ondansetron HCl 4 mg 11/05/20 20:16 11/05/20 20:40 Zofran 4 Mg/2 Ml Vial IV 11/05/20 20:17 4 mg STAT ONE Administration Ondansetron HCl Confirm 11/05/20 20:39 Zofran 4 Mg/2 Ml Vial Administered 11/05/20 20:40 Dose 4 mg .ROUTE .STK-MED ONE Lab/Rad Data: Laboratory Result Diagrams 11/05/20 20:35 11/05/20 20:35 Laboratory Results 11/05/20 11/05/20 11/05/20 Range/Units 20:45 20:35 20:35 WBC (4.0-10.5) K/mm3 RBC (4.1-5.6) M/mm3 Hgb (12.5-18.0) gm/dl Hct (42-50) % MCV (78-100) fl MCH (26-32) pg MCHC (32-36) g/dl RDW (11.5-14.0) % Plt Count (150-450) K/mm3 MPV (7.5-11.0) fl Gran % (36.0-66.0) % Eos # (Auto) (0-0.5) Absolute Lymphs (auto) (1.0-4.6) Absolute Monos (auto) (0.0-1.3) Lymphocytes % (24.0-44.0) % Monocytes % (0.0-12.0) % Eosinophils % (0.00-5.0) % Basophils % (0.0-0.4) % Absolute Granulocytes (1.4-6.9) Basophils # (0-0.4) Sodium 138 (137-145) mmol/L Potassium 3.5 (3.5-5.1) mmol/L Chloride 103 (98-107) mmol/L Carbon Dioxide 25 (22-30) mmol/L Anion Gap 13.1 (5-15) MEQ/L BUN 13 (9-20) mg/dL Creatinine 0.78 (0.66-1.25) mg/dL Estimated GFR > 60.0 ML/MIN Glucose 99 (74-106) mg/dL Calcium 10.0 (8.4-10.2) mg/dL Total Bilirubin 0.60 (0.2-1.3) mg/dL AST 22 (17-59) U/L ALT 17 (0-50) U/L Alkaline Phosphatase 86 (38-126) U/L Troponin I < 0.012 (0.000-0.034) ng/mL Serum Total Protein 8.1 (6.3-8.2) g/dL Albumin 4.3 (3.5-5.0) g/dL Lipase 91 (23-300) U/L Urine Color YELLOW (YELLOW) Urine Appearance CLEAR (CLEAR) Urine pH 6.0 (5-6) Ur Specific [place] 1.020 (1.005-1.025) Urine Protein NEGATIVE (Negative) Urine Ketones NEGATIVE (NEGATIVE) Urine Blood NEGATIVE (0-5) Leandro/ul Urine Nitrite NEGATIVE (NEGATIVE) Urine Bilirubin NEGATIVE (NEGATIVE) Urine Urobilinogen 2 (0-1) mg/dL Ur Leukocyte Esterase NEGATIVE (NEGATIVE) Urine WBC (Auto) NONE (0-5) /HPF Urine RBC (Auto) NONE (0-2) /HPF U Epithel Cells (Auto) NONE (FEW) /HPF Urine Bacteria (Auto) NONE (NEGATIVE) /HPF Urine Mucus (Auto) SLIGHT (NEGATIVE) /HPF Urine Culture Reflexed NO (NO) Urine Glucose NEGATIVE (NEGATIVE) mg/dL 11/05/20 Range/Units 20:35 WBC 12.4 H (4.0-10.5) K/mm3 RBC 5.26 (4.1-5.6) M/mm3 Hgb 14.7 (12.5-18.0) gm/dl Hct 44.3 (42-50) % MCV 84.2 (78-100) fl MCH 27.9 (26-32) pg MCHC 33.2 (32-36) g/dl RDW 13.3 (11.5-14.0) % Plt Count 498 H (150-450) K/mm3 MPV 10.1 (7.5-11.0) fl Gran % 63.2 (36.0-66.0) % Eos # (Auto) 0.16 (0-0.5) Absolute Lymphs (auto) 2.99 (1.0-4.6) Absolute Monos (auto) 1.37 H (0.0-1.3) Lymphocytes % 24.2 (24.0-44.0) % Monocytes % 11.1 (0.0-12.0) % Eosinophils % 1.3 (0.00-5.0) % Basophils % 0.2 (0.0-0.4) % Absolute Granulocytes 7.82 H (1.4-6.9) Basophils # 0.02 (0-0.4) Sodium (137-145) mmol/L Potassium (3.5-5.1) mmol/L Chloride (98-107) mmol/L Carbon Dioxide (22-30) mmol/L Anion Gap (5-15) MEQ/L BUN (9-20) mg/dL Creatinine (0.66-1.25) mg/dL Estimated GFR ML/MIN Glucose (74-106) mg/dL Calcium (8.4-10.2) mg/dL Total Bilirubin (0.2-1.3) mg/dL AST (17-59) U/L ALT (0-50) U/L Alkaline Phosphatase (38-126) U/L Troponin I (0.000-0.034) ng/mL Serum Total Protein (6.3-8.2) g/dL Albumin (3.5-5.0) g/dL Lipase (23-300) U/L Urine Color (YELLOW) Urine Appearance (CLEAR) Urine pH (5-6) Ur Specific [place] (1.005-1.025) Urine Protein (Negative) Urine Ketones (NEGATIVE) Urine Blood (0-5) Leandro/ul Urine Nitrite (NEGATIVE) Urine Bilirubin (NEGATIVE) Urine Urobilinogen (0-1) mg/dL Ur Leukocyte Esterase (NEGATIVE) Urine WBC (Auto) (0-5) /HPF Urine RBC (Auto) (0-2) /HPF U Epithel Cells (Auto) (FEW) /HPF Urine Bacteria (Auto) (NEGATIVE) /HPF Urine Mucus (Auto) (NEGATIVE) /HPF Urine Culture Reflexed (NO) Urine Glucose (NEGATIVE) mg/dL - Progress Progress: improved Progress Note: 11/05/20 23:06 Patient reassessed. He feels much better. Patient tolerating p.o. No nausea vomiting or diarrhea. CT scan negative for acute pathology. Possible gastritis. Patient requesting discharge. He agrees to follow-up with his primary care doctor within 48 hours for reevaluation. Counseled pt/family regarding: lab results, diagnosis, need for follow-up, rad results - Departure Departure Disposition: Home Clinical Impression: Nausea and vomiting, Diverticulosis, Scoliosis, Bulging disc, Gastritis, Gastroenteritis Condition: Stable Critical Care Time: No Referrals: OSMIN LLAMAS PA [Primary Care Provider] - Additional Instructions: Discharge/Care Plan YOMI LEIVA was seen on 11/05/20 in the Emergency Room. The patient was counseled regarding Diagnosis,Lab results, Imaging studies, need for follow up and when to return to the Emergency Room. Prescriptions given: Discharge Note I have spoken with the patient and/or caregivers. I have explained the patient's condition, diagnosis and treatment plan based on the information available to me at this time. I have answered the patient's and/or caregiver's questions and addressed any concerns. The patient and/or caregivers have as good understanding of the patient's diagnosis, condition and treatment plan as can be expected at this point. The vital signs have been stable. The patient's condition is stable and appropriate for discharge from the emergency department. The patient will pursue further outpatient evaluation with the primary care physician or other designated or consulting physician as outlined in the discharge instructions. The patient and/or caregivers are agreeable to this plan of care and follow-up instructions have been explained in detail. The patient and/or caregivers have received these instruction. The patient/and or caregivers are aware that any significant change in condition or worsening of symptoms should prompt an immediate return to this or the closest emergency department or call 911. Prescriptions: Ondansetron ODT 4 MG [Zofran Odt 4 mg] 4 mg PO Q6H PRN PRN #10 tab.rapdis PRN Reason: Vomiting PANTOPRAZOLE 40 mg Tablet [Protonix 40MG Tablet] 40 mg PO QAM 14 Days #14 tab
[2020-11-05] MEDS ORDERED: PROTONIX 40 MG IV IV ONE ×2 (23:07→23:09)
[2020-11-05 23:26] VITALS: BP 144/106; PULSE 76; O2SAT 100
--- NOTE | 2020-11-06 09:11 | XRAY ---
Indication: Abdomen pain. Hypoactive bowel sounds. Nausea, vomiting, diarrhea. Multiple contiguous axial images obtained through the abdomen and pelvis using 80 cc Isovue 370 contrast. Comparison: April 23, 2020. Lung bases remain clear. Heart is not enlarged. Stomach is mildly distended with food/fluid. Noncontrasted stomach and bowel loops appear nonobstructed. Mild fecal debris predominantly in the ascending and transverse colon was then before. Gallbladder contracted without gallstones or biliary distention. Again minimal sigmoid diverticulosis and appendectomy. No free fluid/air. Stable tiny right renal cortical cyst. Remaining liver, gallbladder, pancreas, spleen, adrenal glands, kidneys, ureters, bladder, and aorta appear unremarkable. No pathologic retroperitoneal lymphadenopathy. Osseous structures intact with chronic appearing L3 anterior wedging deformity and mild dextroscoliosis. Impression: 1. Right hemicolon fecal loading. 2. Stable tiny right renal cyst, sigmoid diverticulosis, and chronic bony findings. 3. Contracted gallbladder without gallstones or biliary distention. Gallbladder sonogram may yield further information if clinically warranted. 4. Remaining CT abdomen/pelvis with contrast exam is negative. Comment: Preliminary interpretation was made by [facility]. No critical discrepancy.
== END 2020-11-05 23:30 | disposition home or self-care (01) ==
LOC: ED 19:55
DX: R11.2 Nausea with vomiting, unspecified (principal); K57.90 Diverticulosis of intestine, part unspecified, without perforation or abscess without bleeding; M41.9 Scoliosis, unspecified; K29.70 Gastritis, unspecified, without bleeding; K52.9 Noninfective gastroenteritis and colitis, unspecified; M51.26 Other intervertebral disc displacement, lumbar region
CPT/HCPCS: 36000; 36415; 74177; 80053; 81001; 83690; 84484; 85025; 96360; 96374; 96375; 99284; J2405